=== PATIENT | male | born 1950 | race Caucasian/White ===

== ENCOUNTER 2019-05-25 07:17 | Inpatient (IN) | payer MEDICARE ==
--- NOTE | 2019-05-19 15:24 | HP ---
HISTORY AND PHYSICAL: DATE OF ADMISSION/SURGERY: 05/25/19 DATE OF OFFICE VISIT: 05/14/19 SURGEON: Maame Martínez MD * (DICTATED BY MAXX HUFF) PROCEDURE: Right total knee arthroplasty. CHIEF COMPLAINT: Right knee pain. HISTORY OF PRESENT ILLNESS: Mr. Dee is a 68-year-old gentleman with end- stage osteoarthritis of the right knee. He has failed conservative treatment and elected to proceed with a right total knee arthroplasty. PAST MEDICAL HISTORY: Chronic kidney disease, coronary artery disease, and history of DVT/PE. PAST SURGICAL HISTORY: Pacemaker placement, cardiac stents, hardware removal right knee, ORIF of the right tibia. CURRENT MEDICATIONS: 1. Folic acid 1 mg a day. 2. Allopurinol 100 mg 2 tabs daily. 3. Metoprolol 25 mg daily. 4. Aspirin 81 mg a day. 5. Vitamin D. 6. Fludrocortisone daily. 7. Fish oil. 8. Vitamin C. 9. Fluticasone nasal spray. ALLERGIES: LOVAZA, SIMVASTATIN, and ZETIA. FAMILY HISTORY: Coronary artery disease, diabetes and stroke. SOCIAL HISTORY: He is a 68-year-old gentleman. He lives with his . He does not smoke, use drugs or alcohol. REVIEW OF SYSTEMS: A complete 14-point review of systems was reviewed with the patient. It was positive for history of a DVT, PE and chronic kidney disease. He denies history of hepatitis, HIV, or anesthesia problems. PHYSICAL EXAMINATION GENERAL: He is well developed, well nourished, in no acute distress. VITAL SIGNS: He stands 68 inches tall, weighs 185 pounds. Blood pressure is 126/74, his heart rate is 76. HEENT: Normocephalic, atraumatic. NECK: Supple. No palpable lymph nodes. PULMONARY: The lungs are clear to auscultation bilaterally. CARDIO: Regular rate and rhythm. Strong S1, S2. ABDOMEN: Soft, nontender, nondistended. NEUROLOGICAL: He is alert and oriented x3. MUSCULOSKELETAL: Right lower extremity: The skin is intact. There are no open wounds or abrasions. There is a moderate effusion of the right knee joint. There is some tenderness along the medial and lateral joint line. Range of motion is 10 to 120 degrees of flexion. He walks with an antalgic type gait. He is able to dorsiflex and plantarflex. He has a 2+ dorsalis pedis pulse and intact sensation. ASSESSMENT AND PLAN: Mr. Dee is a 68-year-old gentleman with end-stage osteoarthritis of the right knee. He has failed conservative treatment and elected to proceed with a right total knee arthroplasty. The surgery is scheduled for 05/25/[address] Martínez. Dr. Martínez discussed the risks and benefits of the surgery at today's visit and all of his questions were answered. He will follow up with Dr. Martínez 2 weeks after the surgery. MAXX HUFF [id number]/[facility] #: [id number]
[~2019-05-25 07:17] MED LIST: Buffered Lidocaine 1% SYRIN* 1 ML/SYRINGE INTRADERM ONE; Famotidine IV* 10 MG/ML 2 ML (20 mg) IV ONE; Lactated Ringers 1000 ML Bag* 1,000 ML IV SCH
--- OUTSIDE RECORDS SUMMARY | 2019-05-25 07:20 | XMS REPORT | Continuity of Care Document ---
:1950 External Reference #:[id number] Author Name Blanquita Cisneros MD (transmitted by agent of provider Rissa Croft) Address [address] [place] [id number] Care Team Providers Name Role Phone Erick Petty MD - Family Medicine Care Team Information Poultry Vaccinator Problems Active Problems Provider Date Multiple joint pain Jason Fuentes M.D. Onset: 10/20/2012 Gouty arthropathy Jason Fuentes M.D. Onset: 10/20/2012 Uric acid urolithiasis Jason Fuentes M.D. Onset: 10/20/2012 Syncope and collapse Gatito Hdz M.D., [facility], Onset: 03/23/2013 [facility] Chronic ischemic heart disease Gatito Hdz M.D., [facility], Onset: 03/23/2013 [facility] Hyperlipidemia Gatito Hdz M.D., [facility], Onset: 03/23/2013 [facility] Complete atrioventricular block Gatito Hdz M.D., [facility], Onset: 11/30/2013 [facility] Atrial flutter Gatito Hdz M.D., [facility], Onset: 11/30/2013 [facility] Mixed hyperlipidemia Gatito Hdz M.D., [facility], Onset: 06/19/2015 [facility] Cardiac pacemaker in situ Gatito Hdz M.D., [facility], Onset: 07/03/2016 [facility] Essential hypertension Gatito Hdz M.D., [facility], Onset: 07/03/2016 [facility] Atherosclerotic heart disease of Gatito Hdz M.D., [facility], Onset: 06/16/2017 [place] coronary artery without angina [facility] pectoris Localized, secondary osteoarthritis Maame Martínez M.D. Onset: 12/10/2017 Inflammatory polyarthropathy Maame Martínez M.D. Onset: 12/10/2017 Difficulty breathing Maikol Menezes M.D., [facility], Onset: 06/15/2018 [facility] Atherosclerotic heart disease of Maikol Menezes M.D., [facility], Onset: 2018 [place] coronary artery with other [facility] forms of angina pectoris Thoracic aortic ectasia Maikol Menezes M.D., [facility], Onset: 07/07/2018 [facility] Encounter for removal of internal Catarina Perry MD Onset: 07/14/2018 fixation device Localized, primary osteoarthritis Maame Martínez M.D. Onset: 12/07/2018 Social History Type Date Description Comments Sex Unknown Tobacco Use Start: Unknown Never Smoked Cigarettes Smoking Status Reviewed: 05/19/19 Never Smoked Cigarettes ETOH Use Denies alcohol use Tobacco Use Start: Unknown Patient has never smoked Recreational Drug Use Denies Drug Use Exercise Type/Frequency Exercises regularly walking, when arthritis not bothering him Allergies, Adverse Reactions, Alerts Active Allergies Reaction Severity Comments Date Lovaza 10/03/2017 Simvastatin muscle aches 10/03/2017 Zetia muscle aches 10/03/2017 Inactive Allergies NKDA 10/20/2012 Medications Active Medications SIG Qnty Indications Ordering Date Provider Cosyntropin 250mcg 1units E27.3 [facility], 04/27/2019 0.25mg intramuscular once MD Solution Rec in office Folic Acid Take One Tablet By 30tabs Z79.899 Flex Russlel, 05/27/2017 1mg Tablets Mouth Every Day [employer] Allopurinol Take Two Tablets By 180tabs M10.00 Suziofitheo Russell, 03/20/2017 100mg Tablets Mouth Every Day [employer] Metoprolol Succinate 6 tablets once on 90tabs I48.92 Maikol Grossman 11/30/2013 ER Mon only Marion Menezes, 25mg Tablets ER 24HR [facility] Aspir-81 1 po qd Other Ordering 10/20/[address] Andres Vitamin D po qd 30caps Other Ordering 10/20/2012 1000Unit Provider Capsules Fludrocortisone 1 tab everyday 30tabs Unknown Acetate 0.1mg Tablets Fish Oil Burp-Less 2 by mouth daily Unknown 1000mg Capsules Vitamin C 1 by mouth every Unknown 500mg Tablets day Fluticasone Propionate 2 sprays each Unknown nostril daily as 50mcg/Act Suspension needed Medications Administered in Office Medication SIG Qnty Indications Ordering Provider Date Injection Cosyntropin 0.25MG Quinn Dominguez MD 04/27/2019 Injection Depomedrol 40MG Maame Martínez M.D. 01/29/2019 Injection Depomedrol 40MG Maame Martínez M.D. 12/07/2018 Injection Depomedrol 40MG Maame Martínez M.D. 10/26/2018 Injection Depomedrol 40MG Maame Martínez M.D. 08/03/2018 Injection Inj, Regadenoson, 0.1 MG Maikol Menezes M.D., 07/06/2018 Injection JAKUBC, FASNC Technetium TC 99M Maikol Menezes M.D., 07/06/2018 Tetrofosmin, Per Unit Dose FACC, FASNC Up To 40 Millicuries Injection Depomedrol 40MG Maame Martínez M.D. 05/22/2018 Injection Depomedrol 40MG Maame Martínez M.D. 03/16/2018 Injection Depomedrol 40MG Maame Martínez M.D. 12/10/2017 Injection Immunizations Description No Information Available Vital Signs Date Vital Result Comment 05/19/2019 11:36am Height 68.5 inches 5'8.50" Weight 185.00 lb Heart Rate 67 /min BP Systolic Sitting 118 mmHg right arm large cuff BP Diastolic Sitting 72 mmHg right arm large cuff O2 % BldC Oximetry 98 % room air BMI (Body Mass Index) 27.7 kg/m2 05/14/2019 1:03pm Height 68.5 inches 5'8.50" Weight 185.50 lb Heart Rate 76 /min BP Systolic 126 mmHg BP Diastolic 74 mmHg Respiratory Rate 16 /min Pain Level 1 BMI (Body Mass Index) 27.8 kg/m2 Results Test Acquired Date Facility Test Result H/L Range Note Inr/Protime 05/14/2019 [facility] Inr 1.00 Normal 0.82-1.09 1 [address] [place] [address] [phone] Laboratory test 05/14/2019 [facility] Partial 32.7 Normal 26.0 -38.[address] [place] [address] PTT [phone] Urinalysis 05/14/2019 [facility] Urine Color Yellow Profile [address] [place] [address] [phone] Urine Appearance Clear Urine Specific [place] 1.011 Normal 1.010-1.030 Urine pH 5.0 Normal 5-9 Urine Urobilinogen Negative Negative Urine Ketones Negative Negative Urine Protein Negative Negative Urine Leukocytes Negative Negative Urine Blood Negative Negative * * Abnormal Negative 2 Urine Nitrite Negative Negative Urine Bilirubin Negative Negative Urine Glucose Negative Negative CBC Auto 05/14/2019 [facility] White Blood 8.3 10^3/uL Normal 3.5-10.[address] [place] [address] [phone] Red Blood Count 4.08 10^6/uL Low 4.18-5.48 Hemoglobin 14.5 g/dL Normal 14.0-18.0 Hematocrit 41 % Low 42-52 Mean Corpuscular Volume 101 fL High 80-94 Mean Corpuscular Hemoglobin 36 pg High 27-31 Mean Corpuscular HGB Conc 35 g/dL Normal 31-36 Red Cell Distribution Width 14 % Normal 10-15 Platelet Count 125 10^3/uL Low 150-450 Mean Platelet Volume 8.8 fL Normal 7.4-10.4 Abs Neutrophils 5.8 10^3/uL Normal 1.5-7.7 Abs Lymphocytes 1.8 10^3/uL Normal 1.0-4.8 Abs Monocytes 0.6 10^3/uL Normal 0-0.8 Abs Eosinophils 0.1 10^3/uL Normal 0-0.6 Abs Basophils 0.1 10^3/uL Normal 0-0.2 Abs Nucleated RBC 0.0 10^3/uL Granulocyte % 69.2 % Lymphocyte % 21.7 % Monocyte % 6.9 % Eosinophil % 1.4 % Basophil % 0.8 % Nucleated Red Blood Cells % 0.0 Type & Screen 05/14/2019 [facility] Patient Blood Type A Negative [address] [place] [address] [phone] Antibody Screen NEGATIVE Comp Metabolic 05/14/2019 [facility] Sodium 142 mmol/L Normal 135-145 Panel [address] [place] [address] [phone] Potassium 4.3 mmol/L Normal 3.5-5.0 Chloride 109 mmol/L Normal 101-111 Co2 Carbon Dioxide 27 mmol/L Normal 22-32 Anion Gap 6 mmol/L Normal 2-11 Glucose 102 mg/dL High 70-100 Blood Urea Nitrogen 22 mg/dL Normal 6-24 Creatinine 1.46 mg/dL High 0.67-1.17 BUN/Creatinine Ratio 15.1 Normal 8-20 Calcium 9.2 mg/dL Normal 8.6-10.3 Total Protein 6.1 g/dL Low 6.4-8.9 Albumin 4.3 g/dL Normal 3.2-5.2 Globulin 1.8 g/dL Low 2-4 Albumin/Globulin Ratio 2.4 Normal 1-3 Total Bilirubin 1.00 mg/dL Normal 0.2-1.0 Alkaline Phosphatase 76 U/L Normal 34-104 Alt 39 U/L Normal 7-52 Ast 31 U/L Normal 13-39 Egfr Non- 48.3 >60 Egfr 58.5 >60 3 Urine Culture And 05/14/2019 [facility] Urine Culture SEE RESULT [address] [place] [address] [phone] Laboratory test 04/27/2019 [facility] Cortisol 23.73 g/dL 5 finding [address] [place] [address] [phone] Laboratory test 04/27/2019 [facility] Acth 32 pg/mL 6, 7 finding [address] [place] [address] [phone] Cortisol 9.39 g/dL 8 Dhea Sulfate 40 g/dL 12-227 9 Free T4 (Free Thyroxine) 0.79 ng/dL Normal 0.61-1.12 10 TSH (Thyroid Stim Horm) 3.20 mcIU/mL Normal 0.34-5.60 11 Prolactin 9.1 ng/mL Normal 1.0-20.0 12 Testosterone Total 336.07 ng/dL Normal 240-950 13 Sex Hormone Binding Globulin 40 nmol/L 10-57 14 Comp Metabolic 02/05/2019 [facility] Sodium 143 mmol/L Normal 135-145 Panel [address] [place] [address] [phone] Potassium 4.2 mmol/L Normal 3.5-5.0 Chloride 108 mmol/L Normal 101-111 Co2 Carbon Dioxide 29 mmol/L Normal 22-32 Anion Gap 6 mmol/L Normal 2-11 Glucose 81 mg/dL Normal 70-100 Blood Urea Nitrogen 24 mg/dL Normal 6-24 Creatinine 1.37 mg/dL High 0.67-1.17 BUN/Creatinine Ratio 17.5 Normal 8-20 Calcium 9.2 mg/dL Normal 8.6-10.3 Total Protein 6.2 g/dL Low 6.4-8.9 Albumin 4.3 g/dL Normal 3.2-5.2 Globulin 1.9 g/dL Low 2-4 Albumin/Globulin Ratio 2.3 Normal 1-3 Total Bilirubin 1.00 mg/dL Normal 0.2-1.0 Alkaline Phosphatase 81 U/L Normal 34-104 Alt 20 U/L Normal 7-52 Ast 19 U/L Normal 13-39 Egfr Non- 52.0 >60 Egfr 62.9 >60 15 Creatinine 02/05/2019 [facility] Creatinine, 1.36 High 0.51- 0.[address] Serum mg/dL [place], [place] [address] [phone] Urine Collection Time 24 hr Urine Total Volume 2450 mL Creatinine Clearance 68 mL/min Low 97-137 Total Protein 24HR 02/05/2019 [facility] Urine Collection Time 24 hr Urine [address] [place], [place] [address] [phone] Urine Total Volume 2450 mL Urine Total Protein/24HR 269 mg/24Hr High 0-165 Urine Protein Elctrophoresis 02/05/2019 [facility] Albumin 100 % (RDM) [address] [place] [address] [phone] Impression See Comment 16 Total Protein(Pep) Urine <4 mg/dL 17 Protein 02/05/2019 [facility] Total 6.4 g/dL 6.3 - Electrophoresis [address] Protein(Pep) 7.9 [place] [address] [phone] Albumin 3.7 g/dL 3.4-4.7 Alpha-1 Globulin 0.2 g/dL 0.1-0.3 Alpha-2 Globulin 0.8 g/dL 0.6-1.0 Beta Globulin 1.0 g/dL 0.7-1.2 Gamma Globulin 0.8 g/dL 0.6-1.6 Albumin/Globulin Ratio 1.39 Impression See Comment 18 [place]/Lambda Free 02/05/2019 [facility] [place] Free 2.17 mg/dL Abnormal 19 Light Chains Ser [address] [place] [address] [phone] Lambda Free Light Chain 1.68 mg/dL 20 [place]/Lambda Free Light Chain 1.29 21 Laboratory test 02/05/2019 [facility] Total Protein < 4 mg/dL finding [address] [place] [address] [phone] Creatinine Random Urine 59.65 mg/dL Urine Microalbumin 02/05/2019 [facility] Ur Microalbumin < 15.[address] (mg/L) mg/[place] [address] [phone] Urine Creatinine 59.65 mg/dL Urine Microalbumin/Creatinine TNP <31 22 Laboratory test 02/05/2019 [facility] Aldosterone <4.0 ng/dL <=21 [address] [place] [address] [phone] Renin <0.6 ng/mL/h 24 Cortisol 2.13 g/dL 25 TSH (Thyroid Stim Horm) 1.58 mcIU/mL Normal 0.34-5.60 Hemoglobin A1c (Glyco HGB) 5.6 % Normal 4.0-5.6 26 Laboratory test 02/05/2019 [facility] Erythrocyte Sed 0 mm/Hr Normal 0-19 [address] [place] [address] [phone] C Reactive Protein 1.47 mg/L Normal <8.01 28 CBC Auto 02/05/2019 [facility] White Blood 9.4 10^3/uL Normal 3.5-10.[address] [place] [address] [phone] Red Blood Count 4.43 10^6/uL Normal 4.18-5.48 Hemoglobin 15.5 g/dL Normal 14.0-18.0 Hematocrit 45 % Normal 42-52 Mean Corpuscular Volume 101 fL High 80-94 Mean Corpuscular Hemoglobin 35 pg High 27-31 Mean Corpuscular HGB Conc 35 g/dL Normal 31-36 Red Cell Distribution Width 16 % High 10-15 Platelet Count 134 10^3/uL Low 150-450 Mean Platelet Volume 8.5 fL Normal 7.4-10.4 Abs Neutrophils 6.9 10^3/uL Normal 1.5-7.7 Abs Lymphocytes 1.8 10^3/uL Normal 1.0-4.8 Abs Monocytes 0.7 10^3/uL Normal 0-0.8 Abs Eosinophils 0.0 10^3/uL Normal 0-0.6 Abs Basophils 0.0 10^3/uL Normal 0-0.2 Abs Nucleated RBC 0.0 10^3/uL Granulocyte % 72.9 % Lymphocyte % 18.8 % Monocyte % 7.3 % Eosinophil % 0.5 % Basophil % 0.5 % Nucleated Red Blood Cells % 0.0 Anca Panel For 02/05/2019 [facility] Myeloperoxidase AB < 0.2 U [address] [place] [address] [phone] Proteinase 3 AB < 0.2 U 30 Laboratory test 02/05/2019 [facility] Anti Nuclear 0.1 U 31 finding [address] [facility] [place] [address] [phone] 1 Standard intensity warfarin therapeutic range: 2.0-3.0 High intensity warfarin therapeutic range: 2.5-3.5 2 *Ascorbic acid is present which may interfere with detection of blood. 3 Because ethnic data is not always readily available, this report includes an eGFR for both -Americans and non- Americans. The National Kidney Disease Education Program (NKDEP) does not endorse the use of the MDRD equation for patients that are not between the ages of 18 and 70, are , have extremes of body size, muscle mass, or nutritional status, or are non- or non-. According to the National Kidney Foundation, irrespective of diagnosis, the stage of the disease is based on the level of kidney function: Stage Description GFR(mL/min/1.73 m(2)) 1 Kidney damage with normal or decreased GFR 90 2 Kidney damage with mild decrease in GFR 60-89 3 Moderate decrease in GFR 30-59 4 Severe decrease in GFR 15-29 5 Kidney failure <15 (or dialysis) 4 SEE RESULT BELOW Name: DAROBIE : [address]: Maame Martínez MD Acct: [id number] Unit: [id number] AGE: 68 Location: PAT Re05/14/19 SEX: M Status: REG REF SPEC: [id number] JUAN DAVID: 05/14/19-[address]: Maame Martínez MD REQ: [id number] RECD: 05/14/19 STATUS: COMP _ SOURCE: URINE SPDESC: ORDERED: Urine Culture QUERIES: Urine Source: Clean Catch Procedure Result Reported Site Urine Culture Final 05/15/19- 1448 ML No Growth (<1,000 CFU/mL) * ML - Main Lab . END OF REPORT DEPARTMENT OF PATHOLOGY, [address] [place] [address] Linwood Steinberg M.D. Director CLIA # [id number] 5 AM 8.7-22.4 PM <10 6 BASELINE 7 REFERENCE VALUE 7.2-63 (a.m. collection) Test Performed by: [place] [address] Pesticide Use Medical Coordinator: Pedro Luis Barraza M.D. Ph.D.; CLIA# [id number] 8 AM 8.7-22.4 PM <10 9 Test Performed by: [place] [address] Pesticide Use Medical Coordinator: Pedro Luis Barraza M.D. Ph.D.; CLIA# [id number] 10 BASELINE 11 BASELINE 12 BASELINE 13 BASELINE 14 Test Performed by: [place] [address] Pesticide Use Medical Coordinator: Pedro Luis Barraza M.D. Ph.D.; CLIA# [id number] 15 Because ethnic data is not always readily available, this report includes an eGFR for both -Americans and non- Americans. The National Kidney Disease Education Program (NKDEP) does not endorse the use of the MDRD equation for patients that are not between the ages of 18 and 70, are , have extremes of body size, muscle mass, or nutritional status, or are non- or non-. According to the National Kidney Foundation, irrespective of diagnosis, the stage of the disease is based on the level of kidney function: Stage Description GFR(mL/min/1.73 m(2)) 1 Kidney damage with normal or decreased GFR 90 2 Kidney damage with mild decrease in GFR 60-89 3 Moderate decrease in GFR 30-59 4 Severe decrease in GFR 15-29 5 Kidney failure <15 (or dialysis) 16 RESULT: Albumin is the only protein detected. 17 ADDITIONAL INFORMATION On 11/05/2016 the total protein assay method changed resulting in approximately a 15% increase in protein values. Test Performed by: [facility] [address] [place] [address] Pesticide Use Medical Coordinator: Pedro Luis Barraza M.D. Ph.D.; CLIA# [id number] Test Performed by: [facility] [place] [address] Pesticide Use Medical Coordinator: Pedro Luis Barraza M.D. Ph.D.; CLIA# [id number] 18 RESULT: No apparent monoclonal protein on serum electrophoresis. Test Performed by: [facility] [address] [place] [address] Pesticide Use Medical Coordinator: Pedro Luis Barraza M.D. Ph.D.; CLIA# [id number] 19 REFERENCE VALUE 0.3300-1.94 20 REFERENCE VALUE 0.5700-2.63 21 REFERENCE VALUE 0.2600-1.65 Test Performed by: [facility] [place] [address] Pesticide Use Medical Coordinator: Pedro Luis Barraza M.D. Ph.D.; CLIA# [id number] 22 Unable to calculate due to low microalbumin 23 ADDITIONAL INFORMATION Reference range for patients 11 years and older is based on upright A.M. collection from subjects without sodium restrictions. This test was developed and its performance characteristics determined by [facility] in a manner consistent with CLIA requirements. This test has not been cleared or approved by the U.S. Food and Drug Administration. Test Performed by: [facility] [place] [address] Pesticide Use Medical Coordinator: Pedro Luis Barraza M.D. Ph.D.; CLIA# [id number] 24 REFERENCE VALUE (Peripheral vein specimen) Na-deplete, upright: Mean: 5.9 Range: 2.9-10.8 Na-replete, upright: Mean: 1.0 Range: < or =0.6-3.0 ADDITIONAL INFORMATION Testing performed by Liquid Chromatography-Tandem Mass Spectrometry (LC-MS/MS). This test was developed and its performance characteristics determined by [facility] in a manner consistent with CLIA requirements. This test has not been cleared or approved by the U.S. Food and Drug Administration. Test Performed by: [facility] [place] [address] Pesticide Use Medical Coordinator: Pedro Luis Barraza M.D. Ph.D.; CLIA# [id number] 25 AM 8.7-22.4 PM <10 26 Therapeutic target for the treatment of diabetes mellitus patients is <7% HBA1C, and in selective patients <6.0%. Please refer to [place] [employer] Association diabetic care guidelines for further information. 27 ORDERED:11/11/18 :05/14/19 STANDING ORDER 28 ORDERED:11/11/18 :05/14/19 STANDING ORDER 29 REFERENCE VALUE <0.4 (Negative) 30 REFERENCE VALUE <0.4 (Negative) Test Performed by: [place] [address] Pesticide Use Medical Coordinator: Pedro Luis Barraza M.D. Ph.D.; CLIA# [id number] 31 REFERENCE VALUE <=1.0 (Negative) Test Performed by: [place] [address] Pesticide Use Medical Coordinator: Pedro Luis Barraza M.D. Ph.D.; CLIA# [id number] Procedures Date Code Description Status 04/27/2019 06529 Admin Of Inj Completed 04/26/2019 32449 EKG Tracing & Interpretation Completed 04/20/2019 10295 ECHO Transthoracic, Real-Time 2D With Doppler And Color Completed Flow 02/01/2019 90911 Pace Maker Eval W/Iterative Adjment Dual Lead Completed 02/01/2019 77250 Pace Maker Eval W/Iterative Adjment Dual Lead Completed 01/29/2019 60398 Inject/Drain Joint/Bursa Major W/O US Completed 12/07/2018 20782 Inject/Drain Joint/Bursa Major W/O US Completed Medical Devices Description No Information Available Encounters Type Date Location Provider Dx Diagnosis Office Visit 04/26/2019 [facility] Maikol Grossman Z01.810 Encounter for 1:30p Of Benitez Menezes M.D., preprocedural FACC, [facility] cardiovascular examination M17.11 Unilateral primary osteoarthritis, right knee I77.810 Thoracic aortic ectasia I25.10 Athscl heart disease of [place] coronary artery w/o ang pctrs Office Visit 03/22/2019 [facility] Zsofia M06.4 Inflammatory 3:30p [facility] PAIGE [place] polyarthropathy Ccmob M1A.9xx0 Chronic gout, unspecified, without tophus (tophi) N18.3 Chronic kidney disease, stage 3 (moderate) D69.6 Thrombocytopenia, unspecified 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, right knee Z79.899 Other intermodal customer service (current) drug therapy Office Visit 03/01/2019 1:45p [facility] Maamejanki Martínez, M25.561 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, right knee Office Visit 02/10/2019 [facility] Radha E27.40 Unspecified 1:00p MD Melvin adrenocortical insufficiency N18.3 Chronic kidney disease, stage 3 (moderate) I95.89 Other hypotension Office Visit 01/29/2019 [facility] M17.31 Unilateral 10:00a Orthopedics at [place] Martínez post-traumatic [place] osteoarthritis, right knee M25.561 Pain in right knee M72.2 Plantar fascial fibromatosis Office Visit 12/07/2018 Ricardo Isabel M06.4 Inflammatory 2:30p Orthopedics at [place] Martínez polyarthropathy [place] M25.562 Pain in left knee M25.462 Effusion, left knee M17.12 Unilateral primary osteoarthritis, left 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 osteoarthritis, right knee 05/14/2019 M25.561 Pain in right knee Maame Martínez M.D. 04/27/2019 R94.7 Abnormal results of other endocrine Quinn Dominguez MD function studies 04/27/2019 I95.1 Orthostatic hypotension Quinn Dominguez MD 04/27/2019 I25.10 Atherosclerotic heart disease of Quinn Dominguez MD [place] coronary artery without angina pectoris 04/27/2019 R53.83 Other fatigue Quinn Dominguez MD 04/26/2019 Z01.810 Encounter for preprocedural Maikol Menezes M.D., [facility], cardiovascular examination [facility] 04/26/2019 M17.11 Unilateral primary osteoarthritis, Maikol Menezes M.D. , [facility], right knee FASME 04/26/2019 I77.810 Thoracic aortic ectasia Maikol Menezes M.D., [facility], [facility] 04/26/2019 I25.10 Atherosclerotic heart disease of Maikol Menezes M.D., [facility], [place] coronary artery without [facility] angina pectoris 04/20/2019 I77.810 Thoracic aortic ectasia Maikol Menezes M.D., [facility], [facility] 04/20/2019 I77.810 Thoracic aortic ectasia Traveling ECHO 2 03/22/2019 M06.4 Inflammatory polyarthropathy Zsofia Drew, [employer] 03/22/2019 M1A.9xx0 Chronic gout, unspecified, without Zsofia Drew, [employer] tophus (tophi) 03/22/2019 N18.3 Chronic kidney disease, stage 3 Zsofia Drew, [employer] (moderate) 03/22/2019 D69.6 Thrombocytopenia, unspecified Zsofia Drew, [employer] 03/22/2019 M17.31 Unilateral post-traumatic Zsofia Drew, [employer] osteoarthritis, right knee 03/22/2019 Z79.899 Other intermodal customer service (current) drug Zsofia Drew, [employer] therapy 03/01/2019 M25.561 Pain in right knee Maame Martínez M.D. 03/01/2019 M17.31 Unilateral post-traumatic Maame Martínez M.D. osteoarthritis, right knee 02/10/2019 E27.40 Unspecified adrenocortical Radhano Charles MD insufficiency 02/10/2019 N18.3 Chronic kidney disease, stage 3 Radha Charles MD (moderate) 02/10/2019 I95.89 Other hypotension Radha Charles MD 02/01/2019 Z95.0 Presence of cardiac pacemaker Maikol Menezes M.D., [facility], [facility] 02/01/2019 Z95.0 Presence of cardiac pacemaker Ica Pacer Schedule 02/01/2019 I44.2 Atrioventricular block, complete Ica Pacer Schedule 01/29/2019 M17.31 Unilateral post-traumatic Maame Martínez M.D. osteoarthritis, right knee 01/29/2019 M25.561 Pain in right knee Maame Martínez M.D. 01/29/2019 M72.2 Plantar fascial fibromatosis Maame Martínez M.D. 12/07/2018 M06.4 Inflammatory polyarthropathy Maame Martínez M.D. 12/07/2018 M25.562 Pain in left knee Maame Martínez M.D. 12/07/2018 M25.462 Effusion, left knee Maame Martínez M.D. 12/07/2018 M17.12 Unilateral primary osteoarthritis, Maame Martínez M.D. left knee 12/07/2018 M17.31 Unilateral post-traumatic Maame Martínez M.D. osteoarthritis, right knee 12/07/2018 M25.561 Pain in right knee Maame Martínez M.D. 12/07/2018 M25.461 Effusion, right knee Maame Martínez M.D. Plan of Treatment Future Appointment(s):11/17/2019 3:40 pm - Blanquita Cisneros MD at [facility] Cbbjwzvobe81/27/2020 3:15 pm - Maame Martínez M.D. at [facility] at Mcuyof1105/25/2019 8:30 am - Heriberto Rowell PA-C at [facility] at [id number] 8:30 am - MAXX Arredondo at [facility] at [email or web address] 2:40 pm - Quinn Dominguez MD at [facility]06/28 1:30 pm - PAIGE Amaya at [facility]07/05 10:00 am - Blanquita Cisneros MD at [facility] Ulrcvrcuzl87/14/2020 8:30 am - Maame Martínez M.D. at [facility] at Oyipkq5105/19/2019 - Blanquita Cisneros MDN18.3 Chronic kidney disease, stage 3 (moderate)Comments:Patient is cleared from Nephrology point for Rt Knee replacement 05/25/2019, pending cardiology and anesthesiology clearance. Keep SBP 110-140.Follow up:f/u in 6 months with labsI10 Essential (primary) anerpzhgmhoxV32.9 Hypertensive chronic kidney disease with stage 1 through stage 4 chronic kidney disease, or unspecified chronic kidney disease Functional Status Description No Information Available Mental Status Description No Information Available Referrals Refer to Reason for Referral Status Appt Date Quinn Dominguez MD low aldosterone level and cortisol level Patient Notified 04/27/2019 on fludricortisone for more than 3 years h/o steroid use a few months ago for arthiritis eval for adrenal insufficiency [address] [place] [address] [phone]
--- OUTSIDE RECORDS SUMMARY | 2019-05-25 07:20 | XMS REPORT | Continuity of Care Document ---
:1950 External Reference #:[id number] Author Name Maame Martínez M.D. 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 Onset: 10/20/2012 Gouty arthropathy Jason Fuentes M.D. Onset: 10/20/2012 Uric acid urolithiasis Jason Fuentes M.D. Onset: 10/20/2012 Syncope and collapse Gatito Hdz M.D., [facility], Onset: 03/23/2013 [facility] Chronic ischemic heart disease Gatito Hdz M.D., [facility], Onset: 03/23/2013 [facility] Hyperlipidemia Gatito Hdz M.D., [facility], Onset: 03/23/2013 [facility] Complete atrioventricular block Gatito Hdz M.D., [facility], Onset: 11/30/2013 [facility] Atrial flutter Gatito Hdz M.D., [facility], Onset: 11/30/2013 [facility] Mixed hyperlipidemia Gatito Hdz M.D., [facility], Onset: 06/19/2015 [facility] Cardiac pacemaker in situ Gatito Hdz M.D., [facility], Onset: 07/03/2016 [facility] Essential hypertension Gatito Hdz M.D., [facility], Onset: 07/03/2016 [facility] Atherosclerotic heart disease of Gatito Hdz M.D., [facility], Onset: 06/16/2017 elem coronary artery without angina [facility] pectoris Localized, secondary osteoarthritis Maame Martínez M.D. Onset: 12/10/2017 Inflammatory polyarthropathy Maame Martínez M.D. Onset: 12/10/2017 Difficulty breathing Maikol Menezes M.D., [facility], Onset: 06/15/2018 [facility] Atherosclerotic heart disease of Maikol Menezes M.D., [facility], Onset: 2018 elem coronary artery with other [facility] forms of angina pectoris Thoracic aortic ectasia Maikol Menezes M.D., [facility], Onset: 07/07/2018 [facility] Encounter for removal of internal Catarina Perry MD Onset: 07/14/2018 fixation device Localized, primary osteoarthritis Maame Martínez M.D. 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 Allopurinol Take Two Tablets By 180tabs M10.00 Suziofitheo Russell, 03/20/2017 100mg Tablets Mouth Every Day TRANSIT DEPARTMENT CLERK Metoprolol Succinate 6 tablets once on 90tabs I48.92 Maikol Grossman 11/30/2013 ER Mondays only Marion Menezes, 25mg Tablets ER 24HR [facility], [facility] Aspir-81 1 po qd Other Ordering 10/20/2012 [...] Available Vital Signs Date Vital Result Comment 05/14/2019 1:03pm Height 68.5 inches 5'8.50" Weight 185.50 lb Heart Rate 76 /min BP Systolic 126 mmHg BP Diastolic 74 mmHg Respiratory Rate 16 /min Pain Level 1 BMI (Body Mass Index) 27.8 kg/m2 04/27/2019 7:46am Height 68 inches 5'8" Weight 184.00 lb w/ shoes Heart Rate 80 /min BP Systolic Sitting 118 mmHg BP Diastolic Sitting 72 mmHg BMI (Body Mass Index) 28.0 kg/m2 Results Test Acquired Date Facility Test Result H/L Range Note Laboratory test 04/27/2019 [facility] Cortisol 23.73 g/dL 1 finding [address] [place] [address] [phone] Laboratory test 04/27/2019 [facility] Acth 32 pg/mL 2, [address] [place] [address] [phone] Cortisol 9.39 g/dL 4 Dhea Sulfate 40 g/dL 12-227 5 Free T4 (Free Thyroxine) 0.79 ng/dL Normal 0.61-1.12 6 TSH (Thyroid Stim Horm) 3.20 mcIU/mL Normal 0.34-5.60 7 Prolactin 9.1 ng/mL Normal 1.0-20.0 8 Testosterone Total 336.07 ng/dL Normal 240-950 9 Sex Hormone Binding Globulin 40 nmol/L 10-57 10 CBC Auto 02/05/2019 [facility] White Blood 9.4 10^3/uL Normal 3.5-10.[address] [place] [address] [phone] Red Blood Count 4.43 10^6/uL Normal 4.18-5.48 [...] % Nucleated Red Blood Cells % 0.0 Comp Metabolic 02/05/2019 [facility] Sodium 143 mmol/L Normal 135-[address] [place] [address] [phone] Potassium 4.2 mmol/L Normal 3.5-5.0 Chloride 108 [...] Egfr Non- 52.0 >60 Egfr 62.9 >60 11 Creatinine 02/05/2019 [facility] Creatinine, 1.36 High 0.51- 0.[address] Serum mg/[place] [address] [phone] Urine Collection Time 24 hr Urine Total Volume 2450 mL Creatinine Clearance 68 mL/min Low 97-137 Total Protein 24HR 02/05/2019 [facility] Urine Collection Time 24 hr Urine [address] [place] [address] [phone] Urine Total Volume 2450 mL Urine Total Protein/24HR 269 mg/24Hr High 0-165 Urine Protein Elctrophoresis 02/05/2019 [facility] Albumin 100 % (RDM) [address] [place] [address] [phone] Impression See Comment 12 Total Protein(Pep) Urine <4 mg/dL 13 Protein 02/05/2019 [facility] Total 6.4 g/dL 6.3 - Electrophoresis [address] Protein(Pep) 7.9 [place] [address] [phone] Albumin 3.7 g/dL 3.4-4.7 Alpha-1 Globulin 0.2 g/dL 0.1-0.3 Alpha-2 Globulin 0.8 g/dL 0.6-1.0 Beta Globulin 1.0 g/dL 0.7-1.2 Gamma Globulin 0.8 g/dL 0.6-1.6 Albumin/Globulin Ratio 1.39 Impression See Comment 14 [place]/Lambda Free 02/05/2019 [facility] [place] Free 2.17 mg/dL Abnormal [address] [place] [address] [phone] Lambda Free Light Chain 1.68 mg/dL 16 [place]/Lambda Free Light Chain 1.29 17 Laboratory test 02/05/2019 [facility] Total Protein < 4 mg/dL finding [place] [address] [phone] Creatinine Random Urine 59.65 mg/dL Urine Microalbumin 02/05/2019 [facility] Ur Microalbumin < 15[address] (mg/L) mg/[place] [address] [phone] Urine Creatinine 59.65 mg/dL Urine Microalbumin/Creatinine TNP <31 18 Laboratory test 02/05/2019 [facility] Aldosterone <4.0 ng/dL <=[address] [place] [address] [phone] Renin <0.6 ng/mL/h 20 Cortisol 2.13 g/dL 21 TSH (Thyroid Stim Horm) 1.58 mcIU/mL Normal 0.34-5.60 Hemoglobin A1c (Glyco HGB) 5.6 % Normal 4.0-5.6 22 Laboratory test 02/05/2019 [facility] Erythrocyte Sed 0 mm/Hr Normal 0-[address] [place] [address] [phone] C Reactive Protein 1.47 mg/L Normal <8.01 24 Anca Panel For 02/05/2019 [facility] Myeloperoxidase AB < 0.[address] [place] [address] [phone] Proteinase 3 AB < 0.2 U 26 Laboratory test 02/05/2019 [facility] Anti Nuclear 0.[address] [place] [address] [phone] 1 AM 8.7-22.4 PM <10 2 BASELINE 3 REFERENCE VALUE 7.2-63 (a.m. collection) Test Performed by: [place] [address] Manager User Experience: Pedro Luis Barraza M.D. Ph.D.; CLIA# [id number] 4 AM 8.7-22.4 PM <10 5 Test Performed by: [place] [address] Manager User Experience: Pedro Luis Barraza M.D. Ph.D.; CLIA# [id number] 6 BASELINE 7 BASELINE 8 BASELINE 9 BASELINE 10 Test Performed by: [place] [address] Manager User Experience: Pedro Luis Barraza M.D. Ph.D.; CLIA# [id number] 11 Because ethnic data is not always readily [...] 15-29 5 Kidney failure <15 (or dialysis) 12 RESULT: Albumin is the only protein detected. 13 ADDITIONAL INFORMATION On 11/05/2016 the total protein assay method changed resulting in approximately a 15% increase in protein values. Test Performed by: [place] [address] Manager User Experience: Pedro Luis Barraza M.D. Ph.D.; CLIA# [id number] Test Performed by: [address] [address] Manager User Experience: Pedro Luis Barraza M.D. Ph.D.; CLIA# [id number] 14 RESULT: No apparent monoclonal protein on serum electrophoresis. Test Performed by: [facility] [place] [address] Manager User Experience: Pedro Luis Barraza M.D. Ph.D.; CLIA# [id number] 15 REFERENCE VALUE 0.3300-1.94 16 REFERENCE VALUE 0.5700-2.63 17 REFERENCE VALUE 0.2600-1.65 Test Performed by: [facility] [place] [address] Manager User Experience: Pedro Luis Barraza M.D. Ph.D.; CLIA# [id number] 18 Unable to calculate due to low microalbumin 19 ADDITIONAL INFORMATION Reference range for patients 11 years and older is based on upright A.M. collection from subjects without sodium restrictions. This test was developed and its performance characteristics determined by [facility] in a manner consistent with CLIA requirements. This test has not been cleared or approved by the U.S. Food and Drug Administration. Test Performed by: [facility] [place] [address] Manager User Experience: Pedro Luis Barraza M.D. Ph.D.; CLIA# [id number] 20 REFERENCE VALUE (Peripheral vein specimen) Na-deplete, upright: Mean: 5.9 Range: 2.9-10.8 Na-replete, upright: Mean: 1.0 Range: < or =0.6-3.0 ADDITIONAL INFORMATION Testing performed by Liquid Chromatography-Tandem Mass Spectrometry (LC-MS/MS). This test was developed and its performance characteristics determined by [facility] in a manner consistent with CLIA requirements. This test has not been cleared or approved by the U.S. Food and Drug Administration. Test Performed by: [place] [address] Manager User Experience: Pedro Luis Barraza M.D. Ph.D.; CLIA# [id number] 21 AM 8.7-22.4 PM <10 22 Therapeutic target for the treatment of diabetes mellitus patients is <7% HBA1C, and in selective patients <6.0%. Please refer to [place] [employer] diabetic care guidelines for further information. 23 ORDERED:11/11/18 :05/14/19 STANDING ORDER 24 ORDERED:11/11/18 :05/14/19 STANDING ORDER 25 REFERENCE VALUE <0.4 (Negative) 26 REFERENCE VALUE <0.4 (Negative) Test Performed by: [place] [address] Manager User Experience: Pedro Luis Barraza M.D. Ph.D.; CLIA# [id number] 27 REFERENCE VALUE <=1.0 (Negative) Test Performed by: [facility] [address] [place] [address] Manager User Experience: Pedro Luis Barraza M.D. Ph.D.; CLIA# [id number] Procedures Date Code Description Status 04/27/2019 38403 Admin Of Inj Completed 04/26/2019 65573 EKG Tracing & Interpretation Completed 04/20/2019 79588 ECHO Transthoracic, Real-Time 2D With Doppler And Color Completed Flow 02/01/2019 95691 Pace Maker Eval W/Iterative Adjment Dual Lead Completed 02/01/2019 12036 Pace Maker Eval W/Iterative Adjment Dual Lead Completed 01/29/2019 93799 Inject/Drain Joint/Bursa Major W/O US Completed 12/07/2018 30210 Inject/Drain Joint/Bursa Major W/O US Completed Medical Devices Description No Information Available Encounters Type Date Location Provider Dx Diagnosis Office Visit 04/26/2019 [facility] Maikol Grossman Z01.810 Encounter for 1:30p Of Benitez Menezes M.D., preprocedural FACC, FASNC cardiovascular examination M17.11 Unilateral primary osteoarthritis, right knee I77.810 Thoracic aortic ectasia I25.10 Athscl heart disease of elem coronary artery w/o ang pctrs Office Visit 03/22/2019 Rheumatology Zsofia M06.4 Inflammatory 3:30p Services Of PAIGE Alicea polyarthropathy Ccmob M1A.9xx0 Chronic gout, unspecified, without tophus (tophi) N18.3 Chronic kidney disease, stage 3 (moderate) D69.6 Thrombocytopenia, unspecified 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, right knee Z79.899 Other custodial (current) drug therapy Office Visit 03/01/2019 1:45p [facility] Maame Martínez, M25.561 Pain in right at Mae Schultz 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, right knee Office Visit 02/10/2019 [facility] Nephrology Radha E27.40 Unspecified 1:00p MD Melvin adrenocortical insufficiency N18.3 Chronic kidney disease, stage 3 (moderate) I95.89 Other hypotension Office Visit 01/29/2019 [facility] M17.31 Unilateral 10:00a Orthopedics at [place] Martínez post-traumatic [place] osteoarthritis, right knee M25.561 Pain in right knee M72.2 Plantar fascial fibromatosis Office Visit 12/07/2018 Ricardo Isabel M06.4 Inflammatory 2:30p Orthopedics at Marion Martínez polyarthropathy [place] M25.562 Pain in left knee M25.462 Effusion, left knee M17.12 Unilateral primary osteoarthritis, left 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 osteoarthritis, right knee 05/14/2019 M25.561 Pain in right knee Maame Martínez M.D. 04/27/2019 R94.7 Abnormal results of other endocrine Quinn Dominguez MD function studies 04/27/2019 I95.1 Orthostatic hypotension Quinn Dominguez MD 04/27/2019 I25.10 Atherosclerotic heart disease of Quinn Dominguez MD elem coronary artery without angina pectoris 04/27/2019 R53.83 Other fatigue Quinn Dominguez MD 04/26/2019 Z01.810 Encounter for preprocedural Maikol Menezes M.D., [facility], cardiovascular examination [facility] 04/26/2019 M17.11 Unilateral primary osteoarthritis, Maikol Menezes M.D. , [facility], right knee FASLA 04/26/2019 I77.810 Thoracic aortic ectasia Maikol Menezes M.D., [facility], [facility] 04/26/2019 I25.10 Atherosclerotic heart disease of Maikol Menezes M.D., [facility], elem coronary artery without [facility] angina pectoris 04/20/2019 I77.810 Thoracic aortic ectasia Maikol Menezes M.D., [facility], [facility] 04/20/2019 I77.810 Thoracic aortic ectasia Traveling ECHO 2 03/22/2019 M06.4 Inflammatory polyarthropathy Zsofia Drew, TRANSIT DEPARTMENT CLERK 03/22/2019 M1A.9xx0 Chronic gout, unspecified, without Zsofia Drew, TRANSIT DEPARTMENT CLERK tophus (tophi) 03/22/2019 N18.3 Chronic kidney disease, stage 3 Zsofia Drew, TRANSIT DEPARTMENT CLERK (moderate) 03/22/2019 D69.6 Thrombocytopenia, unspecified Zsofia Drew, TRANSIT DEPARTMENT CLERK 03/22/2019 M17.31 Unilateral post-traumatic Zsofia Drew, TRANSIT DEPARTMENT CLERK osteoarthritis, right knee 03/22/2019 Z79.899 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 03/01/2019 M17.31 Unilateral post-traumatic Maame Martínez M.D. osteoarthritis, right knee 02/10/2019 E27.40 Unspecified adrenocortical Radha Charles MD insufficiency 02/10/2019 N18.3 Chronic kidney disease, stage 3 Radha Charles MD (moderate) 02/10/2019 I95.89 Other hypotension Radha Charles MD 02/01/2019 Z95.0 Presence of cardiac pacemaker Maikol Menezes M.D., [facility], [facility] 02/01/2019 Z95.0 Presence of cardiac pacemaker [...] M25.461 Effusion, right knee Maame Martínez M.D. 11/16/2018 M06.4 Inflammatory polyarthropathy Suziofia Drew, TRANSIT DEPARTMENT CLERK 11/16/2018 M1A.9xx0 Chronic gout, unspecified, without Zsofia Drew, TRANSIT DEPARTMENT CLERK tophus (tophi) 11/16/2018 N18.3 Chronic kidney disease, stage 3 Zsofia Drew, TRANSIT DEPARTMENT CLERK (moderate) 11/16/2018 M17.31 Unilateral post-traumatic Zsofia Drew, TRANSIT DEPARTMENT CLERK osteoarthritis, right knee 11/16/2018 Z79.899 Other custodial (current) drug Zsofia Drew, TRANSIT DEPARTMENT CLERK therapy Plan of Treatment Future Appointment(s):06/07/2019 3:15 pm - Maame Martínez M.D. at [facility] at Mzdbfr0505/25/2019 8:30 am - Heriberto Rowell PA-C at [facility] at Facaxa8405/25/2019 8:30 am - MAXX Arredondo at [facility] at Ntnfdk4807/27/2019 2:40 pm - Quinn Dominguez MD at [facility]06/28/2019 1:30 pm - PAIGE Amaya at [facility]07/05/2019 10:00 am - Blanquita Cisneros MD at [facility] Ilxrorxovp90/14/2020 8:30 am - Maame Martínez M.D. at [facility] at Xeamwh9305/14/2019 - Maame Martínez M.D.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, right kneeFollow up:Follow up: 2 weeks after mvmqbjlB11.561 Pain in right knee Functional Status Description No Information Available Mental Status Description No Information Available Referrals Refer to Dr Reason for Referral Status Appt Date Quinn Dominguez MD low aldosterone level and cortisol level Patient Notified 04/27/2019 on fludricortisone for more than 3 years h/o steroid use a few months ago for arthiritis eval for adrenal insufficiency [address] [place] [address] [phone]
--- OUTSIDE RECORDS SUMMARY | 2019-05-25 07:21 | XMS REPORT | Continuity of Care Document ---
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 Onset: 10/20/2012 Gouty arthropathy Jason Fuentes M.D. Onset: 10/20/2012 Uric acid urolithiasis Jason Fuentes M.D. Onset: 10/20/2012 Syncope and collapse Gatito Hdz M.D., [facility], Onset: 03/23/2013 [facility] Chronic ischemic heart disease Gatito Hdz M.D., [facility], Onset: 03/23/2013 [facility] Hyperlipidemia Gatito Hdz M.D., [facility], Onset: 03/23/2013 [facility] Complete atrioventricular block Gatito Hdz M.D., [facility], Onset: 11/30/2013 [facility] Atrial flutter Gatito Hdz M.D., [facility], Onset: 11/30/2013 [facility] Mixed hyperlipidemia Gatito Hdz M.D., [facility], Onset: 06/19/2015 [facility] Cardiac pacemaker in situ Gatito Hdz M.D., [facility], Onset: 07/03/2016 [facility] Essential hypertension Gatito Hdz M.D., [facility], Onset: 07/03/2016 [facility] Atherosclerotic heart disease of Gatito Hdz M.D., [facility], Onset: 06/16/2017 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 Onset: 12/10/2017 Inflammatory polyarthropathy Maame Martínez M.D. Onset: 12/10/2017 Difficulty breathing Maikol Menezes M.D., [facility], Onset: 06/15/2018 [facility] Atherosclerotic heart disease of Maikol Menezes M.D., [facility], Onset: 2018 tetlin coronary artery with other [facility] forms of angina pectoris Thoracic aortic ectasia Maikol Menezes M.D., [facility], Onset: 07/07/2018 [facility] Encounter for removal of internal Catarina Perry MD Onset: 07/14/2018 fixation device Localized, primary osteoarthritis Maame Martínez M.D. Onset: 12/07/2018 Social History Type Date Description Comments Sex Unknown Tobacco Use Start: Unknown Never Smoked Cigarettes Smoking Status Reviewed: 04/27/19 Never Smoked Cigarettes ETOH Use Denies alcohol [...] Ordering Date Provider Cosyntropin 250mcg 1units E27.3 Ball Coch, 04/27/2019 0.25mg intramuscular once MD Akash Rec in office Folic Acid Take One Tablet By 30tabs Z79.899 Flex Russell, 05/27/2017 1mg Tablets Mouth Every Day [employer] Allopurinol Take Two Tablets By 180tabs M10.00 Flex Russell, 03/20/2017 100mg Tablets Mouth Every Day [employer] Metoprolol Succinate 6 tablets once on 90tabs I48.92 Maikol Grossman 11/30/2013 ER Mondays only [place] Menezes, 25mg Tablets ER 24HR [facility] Aspir-81 1 po qd Other Ordering 10/20/[address] Provider Vitamin D po qd 30caps Other Ordering 10/20/2012 1000Unit Provider Capsules Fludrocortisone 1 tab everyday 30tabs Unknown Acetate 0.1mg Tablets Fish Oil Burp-Less 2 by mouth daily Unknown 1000mg Capsules Vitamin C 1 by mouth every Unknown 500mg Tablets day Medications Administered in Office Medication SIG Qnty Indications Ordering Provider Date Injection Cosyntropin 0.25MG Quinn Dominguez MD 04/27/2019 Injection Depomedrol 40MG Maame Martínez M.D. 01/29/2019 Injection Depomedrol 40MG Maame Martínez M.D. 12/07/2018 Injection Depomedrol 40MG Maame Martínez M.D. 10/26/2018 Injection Depomedrol 40MG Maame Martínez M.D. 08/03/2018 Injection Inj, Regadenoson, 0.1 MG Maikol Menezes M.D., 07/06/2018 Injection [place] Technetium TC 99M Maikol Menezes M.D., 07/06/2018 Tetrofosmin, Per Unit Dose [place] Up To 40 Millicuries Injection Agomedrol 40MG Maame Martínez M.D. 05/22/2018 Injection Depomedrol 40MG Maame Martínez M.D. 03/16/2018 Injection Diandrarol 40MG Maame Martínez M.D. 12/10/2017 Injection Immunizations Description No Information Available Vital Signs Date Vital Result Comment 04/27/2019 7:46am Height 68 inches 5'8" Weight 184.00 lb w/ shoes Heart Rate 80 /min BP Systolic Sitting 118 mmHg BP Diastolic Sitting 72 mmHg BMI (Body Mass Index) 28.0 kg/m2 04/26/2019 12:59pm Height 68 inches 5'8" Weight 186.00 lb with boots Heart Rate 64 /min BP Systolic Sitting 122 mmHg Rue reg cuff BP Diastolic Sitting 86 mmHg Rue reg cuff BP Systolic Standing 108 mmHg Rue reg cuff BP Diastolic Standing 80 mmHg Rue reg cuff Respiratory Rate 16 /min BMI (Body Mass Index) 28.3 kg/m2 Ejection Fraction 55-60% ECHO 04/20/2019 Results Test Acquired Date Facility Test Result H/L Range Note Laboratory test 02/05/2019 [facility] Erythrocyte Sed 0 mm/Hr Normal 0-19 [address] [place], [place] [id number] [phone] C Reactive Protein 1.47 mg/L Normal <8.01 2 Laboratory test 02/05/2019 [facility] Aldosterone <4.0 ng/dL <=21 [address] [place] [address] [phone] Renin <0.6 ng/mL/h 4 Cortisol 2.13 g/dL 5 TSH (Thyroid Stim Horm) 1.58 mcIU/mL Normal 0.34-5.60 Hemoglobin A1c (Glyco HGB) 5.6 % Normal 4.0-5.6 6 Urine Microalbumin 02/05/2019 [facility] Ur Microalbumin < 15.[address] (mg/L) mg/[place] [address] [phone] Urine Creatinine 59.65 mg/dL Urine Microalbumin/Creatinine TNP <31 7 Laboratory test 02/05/2019 [facility] Total Protein < 4 mg/dL finding [address] [place] [address] [phone] Creatinine Random Urine 59.65 mg/dL [place]/Lambda Free 02/05/2019 [facility] [place] Free 2.17 mg/dL Abnormal 8 Light Chains Ser [address] [place] [address] [phone] Lambda Free Light Chain 1.68 mg/dL 9 [place]/Lambda Free Light Chain 1.29 10 Protein 02/05/2019 [facility] Total 6.4 g/dL 6.3 - Electrophoresis [address] Protein(Pep) 7.9 [place] [address] [phone] Albumin 3.7 g/dL 3.4-4.7 Alpha-1 Globulin 0.2 g/dL 0.1-0.3 Alpha-2 Globulin 0.8 g/dL 0.6-1.0 Beta Globulin 1.0 g/dL 0.7-1.2 Gamma Globulin 0.8 g/dL 0.6-1.6 Albumin/Globulin Ratio 1.39 Impression See Comment 11 Urine Protein Elctrophoresis 02/05/2019 [facility] Albumin 100 % (RDM) [address] [place] [address] [phone] Impression See Comment 12 Total Protein(Pep) Urine <4 mg/dL 13 Total Protein 24HR 02/05/2019 [facility] Urine Collection Time 24 hr Urine [address] [place] [address] [phone] Urine Total Volume 2450 mL Urine Total Protein/24HR 269 mg/24Hr High 0-165 Creatinine 02/05/2019 [facility] Creatinine, 1.36 High 0.51- 0.[address] Serum mg/[place] [address] [phone] Urine Collection Time 24 hr Urine Total Volume 2450 mL Creatinine Clearance 68 mL/min Low 97-137 Comp Metabolic 02/05/2019 [facility] Sodium 143 mmol/L Normal 135-[address] [place] [address] [phone] Potassium 4.2 mmol/L Normal 3.5-5.0 Chloride 108 [...] Egfr Non- 52.0 >60 Egfr 62.9 >60 14 CBC Auto 02/05/2019 [facility] White Blood 9.4 10^3/uL Normal 3.5-10.[address] [place] [address] [phone] Red Blood Count 4.43 10^6/uL Normal 4.18-5.48 [...] Cells % 0.0 Anca Panel For 02/05/2019 [facility] Myeloperoxidase AB < 0.2 U [address] [place] [address] [phone] Proteinase 3 AB < 0.2 U 16 Laboratory test 02/05/2019 [facility] Anti Nuclear 0.1 U [address] [place] [address] [phone] CBC Auto Diff 11/11/2018 [facility] White Blood 9.6 Normal 3.5 -[address] Count 10^3/uL 0.8 [place] [address] [phone] Red Blood Count 4.55 10^6/uL Normal 4.18-5.48 Hemoglobin 15.4 g/dL Normal 14.0-18.0 Hematocrit 46 % Normal 42-52 Mean Corpuscular Volume 100 fL High 80-94 Mean Corpuscular Hemoglobin 34 pg High 27-31 Mean Corpuscular HGB Conc 34 g/dL Normal 31-36 Red Cell Distribution Width 15 % Normal 10-15 Platelet Count 112 10^3/uL Low 150-450 Mean Platelet Volume 9.7 fL Normal 7.4-10.4 Abs Neutrophils 6.8 10^3/uL Normal 1.5-7.7 Abs Lymphocytes 2.0 10^3/uL Normal 1.0-4.8 Abs Monocytes 0.7 10^3/uL Normal 0-0.8 Abs Eosinophils 0.1 10^3/uL Normal 0-0.6 Abs Basophils 0.0 10^3/uL Normal 0-0.2 Abs Nucleated RBC 0.1 10^3/uL Granulocyte % 71.2 % Lymphocyte % 20.4 % Monocyte % 7.5 % Eosinophil % 0.7 % Basophil % 0.2 % Nucleated Red Blood Cells % 0.5 Comp Metabolic 11/11/2018 [facility] Sodium 142 mmol/L Normal 135-[address] [place] [address] [phone] Chloride 109 mmol/L Normal 101-111 Co2 Carbon Dioxide 24 mmol/L Normal 22-32 Glucose 94 mg/dL Normal 70-100 Blood Urea Nitrogen 27 mg/dL High 6-24 Creatinine 1.72 mg/dL High 0.67-1.17 BUN/Creatinine Ratio 15.7 Normal 8-20 Calcium 9.7 mg/dL Normal 8.6-10.3 Total Protein 6.5 g/dL Normal 6.4-8.9 Albumin 4.5 g/dL Normal 3.2-5.2 Globulin 2.0 g/dL Normal 2-4 Albumin/Globulin Ratio 2.3 Normal 1-3 Total Bilirubin 1.40 mg/dL High 0.2-1.0 Alkaline Phosphatase 84 U/L Normal 34-104 Alt 20 U/L Normal 7-52 Ast 21 U/L Normal 13-39 Egfr Non- 40.0 >60 Egfr 48.4 >60 18 Potassium 5.1 mmol/L High 3.5-5.0 Anion Gap 9 mmol/L Normal 2-11 Laboratory test 11/11/2018 [facility] C Reactive 1.35 mg/L Normal <8.[address] [place] [address] [phone] Erythrocyte Sed Rate 1 mm/Hr Normal 0-19 1 ORDERED:11/11/18 :05/14/19 STANDING ORDER 2 ORDERED:11/11/18 :05/14/19 STANDING ORDER 3 ADDITIONAL INFORMATION Reference range for patients 11 years and older is based on upright A.M. collection from subjects without sodium restrictions. This test was developed and its performance characteristics determined by [facility] in a manner consistent with CLIA requirements. This test has not been cleared or approved by the U.S. Food and Drug Administration. Test Performed by: [facility] [place] [address] Skip Miner Blasting: Pedro Luis Barraza M.D. Ph.D.; CLIA# [id number] 4 REFERENCE VALUE (Peripheral vein specimen) Na-deplete, upright: Mean: 5.9 Range: 2.9-10.8 Na-replete, upright: Mean: 1.0 Range: < or =0.6-3.0 ADDITIONAL INFORMATION Testing performed by Liquid Chromatography-Tandem Mass Spectrometry (LC-MS/MS). This test was developed and its performance characteristics determined by [facility] in a manner consistent with CLIA requirements. This test has not been cleared or approved by the U.S. Food and Drug Administration. Test Performed by: [facility] [place] [address] Skip Miner Blasting: Pedro Luis Barraza M.D. Ph.D.; CLIA# [id number] 5 AM 8.7-22.4 PM <10 6 Therapeutic target for the treatment of diabetes mellitus patients is <7% HBA1C, and in selective patients <6.0%. Please refer to [employer] diabetic care guidelines for further information. 7 Unable to calculate due to low microalbumin 8 REFERENCE VALUE 0.3300-1.94 9 REFERENCE VALUE 0.5700-2.63 10 REFERENCE VALUE 0.2600-1.65 Test Performed by: [facility] [place] [address] Skip Miner Blasting: Pedro Luis Barraza M.D. Ph.D.; CLIA# [id number] 11 RESULT: No apparent monoclonal protein on serum electrophoresis. Test Performed by: [facility] [place] [address] Skip Miner Blasting: Pedro Luis Barraza M.D. Ph.D.; CLIA# [id number] 12 RESULT: Albumin is the only protein detected. 13 ADDITIONAL INFORMATION On 11/05/2016 the total protein assay method changed resulting in approximately a 15% increase in protein values. Test Performed by: [facility] [place] [address] Skip Miner Blasting: Pedro Luis Barraza M.D. Ph.D.; CLIA# [id number] Test Performed by: [facility] [place] [id number] Skip Miner Blasting: Pedro Luis Barraza M.D. Ph.D.; CLIA# [id number] 14 Because ethnic data is not always readily [...] 15-29 5 Kidney failure <15 (or dialysis) 15 REFERENCE VALUE <0.4 (Negative) 16 REFERENCE VALUE <0.4 (Negative) Test Performed by: [facility] [place] [address] Skip Miner Blasting: Pedro Luis Barraza M.D. Ph.D.; CLIA# [id number] 17 REFERENCE VALUE <=1.0 (Negative) Test Performed by: [facility] [place] [address] Skip Miner Blasting: Pedro Luis Barraza M.D. Ph.D.; CLIA# [id number] 18 Because ethnic data is not always readily [...] 15-29 5 Kidney failure <15 (or dialysis) Procedures Date Code Description Status 04/26/2019 25169 EKG Tracing & Interpretation Completed 04/20/2019 74205 ECHO Transthoracic, Real-Time 2D With Doppler And Color Completed Flow 02/01/2019 94432 Pace Maker Eval W/Iterative Adjment Dual Lead Completed 02/01/2019 83017 Pace Maker Eval W/Iterative Adjment Dual Lead Completed 01/29/2019 Inject/Drain Joint/Bursa Major W/O US Completed 12/07/2018 Inject/Drain Joint/Bursa Major W/O US Completed Medical Devices Description No Information Available Encounters Type Date Location Provider Dx Diagnosis Office Visit 03/22/2019 Rheumatology Flex Russell, M06.4 Inflammatory 3:30p [facility] [employer] polyarthropathy Ccmob M1A.9xx0 Chronic gout, unspecified, without tophus (tophi) N18.3 Chronic kidney disease, stage 3 (moderate) D69.6 Thrombocytopenia, unspecified 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, right knee Z79.899 Other mcc (current) drug therapy Office Visit 03/01/2019 1:45p [facility] Maame Martínez, M25.561 Pain in right at [place] 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, right knee Office Visit 02/10/2019 [facility]phrology Radha E27.40 Unspecified 1:00p MD Melvin adrenocortical insufficiency N18.3 Chronic kidney disease, stage 3 (moderate) I95.89 Other hypotension Office Visit 01/29/2019 [facility] M17.31 Unilateral 10:00a Orthopedics at [place] Martínez post-traumatic [place] osteoarthritis, right knee M25.561 Pain in right knee M72.2 Plantar fascial fibromatosis Office Visit 12/07/2018 Ricardo Isabel M06.4 Inflammatory 2:30p Orthopedics at [place] Martínez polyarthropathy [place] M25.562 Pain in left knee M25.462 Effusion, left knee M17.12 Unilateral primary osteoarthritis, left 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, right knee M25.561 Pain in right knee M25.461 Effusion, right knee Office Visit 11/16/2018 Rheumatology Flex M06.4 Inflammatory 3:30p [facility] [place], [employer] polyarthropathy Ccmob M1A.9xx0 Chronic gout, unspecified, without tophus (tophi) N18.3 Chronic kidney disease, stage 3 (moderate) 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, right knee Z79.899 Other mcc (current) drug therapy Assessments Date Code Description Provider 04/27/2019 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 04/26/2019 I77.810 Thoracic aortic ectasia Maikol Menezes M.D., [facility] 04/20/2019 I77.810 Thoracic aortic ectasia Maikol Menezes M.D., [facility] 04/20/2019 I77.810 Thoracic aortic ectasia Traveling ECHO 2 03/22/2019 M06.4 Inflammatory polyarthropathy Zsofia [place], [employer] 03/22/2019 M1A.9xx0 Chronic gout, unspecified, without Zsofia [place], [employer] tophus (tophi) 03/22/2019 N18.3 Chronic kidney disease, stage 3 Zsofia [place], [employer] (moderate) 03/22/2019 D69.6 Thrombocytopenia, unspecified Zsofia [facility], [employer] 03/22/2019 M17.31 Unilateral post-traumatic Zsofia [place], [employer] osteoarthritis, right knee 03/22/2019 Z79.899 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 03/01/2019 M17.31 Unilateral post-traumatic Maame Martínez M.D. osteoarthritis, right knee 02/10/2019 E27.40 Unspecified adrenocortical Radha Charles MD insufficiency 02/10/2019 N18.3 Chronic kidney disease, stage 3 Radha Charles MD (moderate) 02/10/2019 I95.89 Other hypotension Radha Charles MD 02/01/2019 Z95.0 Presence of cardiac pacemaker Maikol Menezes M.D., [facility] 02/01/2019 Z95.0 Presence of cardiac pacemaker Ica Pacer Schedule 02/01/2019 I44.2 Atrioventricular block, complete Ica Pacer Schedule 01/29/2019 M17.31 Unilateral post-traumatic Maame Martínez M.D. osteoarthritis, right knee 01/29/2019 M25.561 Pain in right knee Maame Martínez M.D. 01/29/2019 M72.2 Plantar fascial fibromatosis Maame Mauricio, M.D. 12/07/2018 M06.4 Inflammatory polyarthropathy Maame Martínez [...] Maame Martínez M.D. 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 at [facility]05/14/2019 1:00 pm - Maame Martínez M.D. at [facility] at [facility]4/27/2019 - Quinn Dominguez MDE27.3 Drug-induced adrenocortical insufficiencyNew Medication:Cosyntropin 0.25 mg - 250mcg intramuscular once in officeNew Labs:Acth, Ordered: 04/27/19Cortisol, Ordered: 04/27/19Dhea Sulfate, Ordered: 04/27/19Free T4 (Free Thyroxine), Ordered: 04/27/19TSH (Thyroid Stim Horm), Ordered: 04/27/19Prolactin, Ordered: 04/27/19Testosterone Total, Ordered : 04/27/19Sex Hormone Binding Globulin, Ordered: 04/27/19Cortisol, Ordered: Instructions:1. Blood tests and Cosyntropin stimulation test. 2. Continue fludrocortisone for symptom. Functional Status Description No Information Available Mental Status Description No Information Available Referrals Refer to Dr Reason for Referral Status Appt Date Quinn Dominguez MD low aldosterone level and cortisol level Patient Notified 04/27/2019 on fludricortisone for more than 3 years h/o steroid use a few months ago for arthiritis eval for adrenal insufficiency [address] [place] [address] [phone]
--- OUTSIDE RECORDS SUMMARY | 2019-05-25 07:21 | XMS REPORT | Continuity of Care Document ---
:1950 External Reference #:[id number] Author Name Maikol Menezes M.D., [facility] (transmitted by agent of provider Jennie Naranjo) [place] [address] Care Team Providers Name Role Phone Erick Petty MD - Family Medicine Care Team Information People Greeter [phone] Problems Active Problems Provider Date Multiple joint pain Jason Fuentes M.D. Onset: 10/20/2012 Gouty arthropathy Jason Fuentes M.D. Onset: 10/20/2012 Uric acid urolithiasis Jason Fuentes M.D. Onset: 10/20/2012 Syncope and collapse Gatito Hdz M.D., [facility], Onset: 03/23/2013 [facility] Chronic ischemic heart disease Gatito Hdz M.D., [facility], Onset: 03/23/2013 [facility] Hyperlipidemia Gatito Hdz M.D., [facility], Onset: 03/23/2013 [facility] Complete atrioventricular block Gatito Hdz M.D., [facility], Onset: 11/30/2013 [facility] Atrial flutter Gatito Hdz M.D., [facility], Onset: 11/30/2013 [facility] Mixed hyperlipidemia Gatito Hdz M.D., [facility], Onset: 06/19/2015 [facility] Cardiac pacemaker in situ Gatito Hdz M.D., [facility], Onset: 07/03/2016 [facility] Essential hypertension Gatito Hdz M.D., [facility], Onset: 07/03/2016 [facility] Atherosclerotic heart disease of Gatito Hdz M.D., [facility], Onset: 06/16/2017 [facility] coronary artery without angina [facility] pectoris Localized, secondary osteoarthritis Maame Martínez M.D. Onset: 12/10/2017 Inflammatory polyarthropathy Maame Martínez M.D. Onset: 12/10/2017 Difficulty breathing Maikol Menezes M.D., [facility], Onset: 06/15/2018 [facility] Atherosclerotic heart disease of Maikol Menezes M.D., [facility], Onset: 2018 [place] coronary artery with other [facility] forms of angina pectoris Thoracic aortic ectasia Maikol Menezes M.D., [facility], Onset: 07/07/2018 [facility] Encounter for removal of internal Catarina Perry MD Onset: 07/14/2018 fixation device Localized, primary osteoarthritis Maame Martínez M.D. Onset: 12/07/2018 Social History Type Date Description Comments Sex Unknown Tobacco Use Start: Unknown Never Smoked Cigarettes Smoking Status Reviewed: 04/26/19 Never Smoked Cigarettes ETOH Use Denies alcohol use Tobacco Use Start: Unknown Patient has never smoked Recreational Drug Use Denies Drug Use Exercise Type/Frequency Exercises regularly walking, when arthritis not bothering him Allergies, Adverse Reactions, Alerts Active Allergies Reaction Severity Comments Date Lovaza 10/03/2017 Simvastatin 10/03/2017 Zetia 10/03/2017 Inactive Allergies NKDA 10/20/2012 Medications Active Medications SIG Qnty Indications Ordering Date Provider Folic Acid Take One Tablet 30tabs Z79.899 Flex Russell, 05/27/2017 1mg Tablets By Mouth Every DISH STACKER Day Allopurinol Take Two Tablets 180tabs M10.00 Flex Russell, 03/20/2017 100mg Tablets By Mouth Every DISH STACKER Day Metoprolol Succinate ER 1 tab by mouth 90tabs I48.92 Maikol Grossman 11/30/2013 every day [facility] Menezes, 25mg Tablets ER 24HR [facility] Aspir-81 1 po qd Other Ordering 10/20/[address] Provider Vitamin D po qd 30caps Other Ordering 10/20/2012 1000Unit Capsules Provider Fludrocortisone Acetate 1 tab everyday 30tabs Unknown 0.1mg Tablets Fish Oil Burp-Less 2 by mouth daily Unknown 1000mg Capsules Vitamin C 1 by mouth every Unknown 500mg Tablets day Medications Administered in Office Medication SIG Qnty Indications Ordering Provider Date Ratna 40MG Maame Martínez M.D. 01/29/2019 Injection Agomedrol 40MG Maame Martínez M.D. 12/07/2018 Injection Depomedrol [...] Available Vital Signs Date Vital Result Comment 04/26/2019 12:59pm Height 68 inches 5'8" Weight 186.00 lb with boots Heart Rate 64 /min BP Systolic Sitting 122 mmHg Rue reg cuff BP Diastolic Sitting 86 mmHg Rue reg cuff BP Systolic Standing 108 mmHg Rue reg cuff BP Diastolic Standing 80 mmHg Rue reg cuff Respiratory Rate 16 /min BMI (Body Mass Index) 28.3 kg/m2 Ejection Fraction 55-60% ECHO 04/20/2019 03/22/2019 3:07pm Height 68 inches 5'8" Weight 181.25 lb Heart Rate 81 /min BP Systolic 120 mmHg BP Diastolic 69 mmHg Body Temperature 97.5 F O2 % BldC Oximetry 97 % BMI (Body Mass Index) 27.6 kg/m2 Results Test Acquired Date Facility Test Result H/L Range Note Laboratory test 02/05/2019 [facility] Erythrocyte Sed 0 mm/Hr Normal 0-19 [address] [place] [address] [phone] C Reactive Protein 1.47 mg/L Normal <8.01 2 Laboratory test 02/05/2019 [facility] Aldosterone <4.0 ng/dL <=21 [address] [place] [address] [phone] Renin <0.6 ng/mL/h 4 Cortisol 2.13 g/dL 5 TSH (Thyroid Stim Horm) 1.58 mcIU/mL Normal 0.34-5.60 Hemoglobin A1c (Glyco HGB) 5.6 % Normal 4.0-5.6 6 Urine Microalbumin 02/05/2019 [facility] Ur Microalbumin < 15.[address] (mg/L) mg/[place] [address] [phone] Urine Creatinine 59.65 mg/dL Urine Microalbumin/Creatinine TNP <31 7 Laboratory test 02/05/2019 [facility] Total Protein < 4 mg/dL finding [address] Random Urine [place] [address] [phone] Creatinine Random Urine 59.65 mg/dL [place]/Lambda Free 02/05/2019 [facility] [place] Free 2.17 mg/dL Abnormal 8 Light Chains Ser [address] [place] [address] [phone] Lambda Free Light Chain 1.68 mg/dL 9 [place]/Lambda Free Light Chain 1.29 10 Protein 02/05/2019 [facility] Total 6.4 g/dL 6.3 - Electrophoresis [address] Protein(Pep) 7.9 [place] [address] [phone] Albumin 3.7 g/dL 3.4-4.7 Alpha-1 Globulin 0.2 g/dL 0.1-0.3 Alpha-2 Globulin 0.8 g/dL 0.6-1.0 Beta Globulin 1.0 g/dL 0.7-1.2 Gamma Globulin 0.8 g/dL 0.6-1.6 Albumin/Globulin Ratio 1.39 Impression See Comment 11 Urine Protein Elctrophoresis 02/05/2019 [facility] Albumin 100 % (RDM) [address] [place] [address] [phone] Impression See Comment 12 Total Protein(Pep) Urine <4 mg/dL 13 Total Protein 24HR 02/05/2019 [facility] Urine Collection Time 24 hr Urine [address] [place] [address] [phone] Urine Total Volume 2450 mL Urine Total Protein/24HR 269 mg/24Hr High 0-165 Creatinine 02/05/2019 [facility] Creatinine, 1.36 High 0.51- 0.[address] Serum mg/[place] [address] [phone] Urine Collection Time 24 hr Urine Total Volume 2450 mL Creatinine Clearance 68 mL/min Low 97-137 Comp Metabolic 02/05/2019 [facility] Sodium 143 mmol/L Normal 135-[address] [place] [address] [phone] Potassium 4.2 mmol/L Normal 3.5-5.0 Chloride 108 [...] Egfr 62.9 >60 14 CBC Auto 02/05/2019 [facility] White Blood 9.4 10^3/uL Normal 3.5-10.[address] [place] [address] [phone] Red Blood Count 4.43 10^6/uL Normal 4.18-5.48 [...] Cells % 0.0 Anca Panel For 02/05/2019 [facility] Myeloperoxidase AB < 0.2 U [address] [place] [address] [phone] Proteinase 3 AB < 0.2 U 16 Laboratory test 02/05/2019 [facility] Anti Nuclear 0.1 U [address] [place] [address] [phone] CBC Auto Diff 11/11/2018 [facility] White Blood 9.6 Normal 3.5 -[address] Count 10^3/uL 0.8 [place] [address] [phone] Red Blood Count 4.55 10^6/uL Normal 4.18-5.48 [...] Blood Cells % 0.5 Comp Metabolic 11/11/2018 [facility] Sodium 142 mmol/L Normal 135-145 Panel [address] [place] [address] [phone] Chloride 109 mmol/L Normal 101-111 Co2 Carbon [...] 9 mmol/L Normal 2-11 Laboratory test 11/11/2018 [facility] C Reactive 1.35 mg/L Normal <8.01 finding [address] [facility] [place] [address] [phone] Erythrocyte Sed Rate 1 mm/Hr Normal 0-19 1 ORDERED:11/11/18 :05/14/19 STANDING ORDER 2 ORDERED:11/11/18 :05/14/19 STANDING ORDER 3 ADDITIONAL INFORMATION Reference range for patients 11 years and older is based on upright A.M. collection from subjects without sodium restrictions. This test was developed and its performance characteristics determined by [facility] in a manner consistent with CLIA requirements. This test has not been cleared or approved by the U.S. Food and Drug Administration. Test Performed by: [facility] [address] [place] [address] Business Development Representative: Pedro Luis Barraza M.D. Ph.D.; CLIA# [id number] 4 REFERENCE VALUE (Peripheral vein specimen) Na-deplete, upright: Mean: 5.9 Range: 2.9-10.8 Na-replete, upright: Mean: 1.0 Range: < or =0.6-3.0 ADDITIONAL INFORMATION Testing performed by Liquid Chromatography-Tandem Mass Spectrometry (LC-MS/MS). This test was developed and its performance characteristics determined by [facility] in a manner consistent with CLIA requirements. This test has not been cleared or approved by the U.S. Food and Drug Administration. Test Performed by: [facility] [place] [employer] [facility] [place] [address] Business Development Representative: Pedro Luis Barraza M.D. Ph.D.; CLIA# [id number] 5 AM 8.7-22.4 PM <10 6 Therapeutic target for the treatment of diabetes mellitus patients is <7% HBA1C, and in selective patients <6.0%. Please refer to [place] [employer] diabetic care guidelines for further information. 7 Unable to calculate due to low microalbumin 8 REFERENCE VALUE 0.3300-1.94 9 REFERENCE VALUE 0.5700-2.63 10 REFERENCE VALUE 0.2600-1.65 Test Performed by: [facility] [address] [place] [address] Business Development Representative: Pedro Luis Barraza M.D. Ph.D.; CLIA# [id number] 11 RESULT: No apparent monoclonal protein on serum electrophoresis. Test Performed by: [facility] [place] [address] Business Development Representative: Pedro Luis Barraza M.D. Ph.D.; CLIA# [id number] 12 RESULT: Albumin is the only protein detected. 13 ADDITIONAL INFORMATION On 11/05/2016 the total protein assay method changed resulting in approximately a 15% increase in protein values. Test Performed by: [facility] [place] [address] Business Development Representative: Pedro Luis Barraza M.D. Ph.D.; CLIA# [id number] Test Performed by: [facility] - [address] [address] Business Development Representative: Pedro Luis Barraza M.D. Ph.D.; CLIA# [id number] 14 Because ethnic data is not always [...] REFERENCE VALUE <0.4 (Negative) Test Performed by: [facility] [place] [address] Business Development Representative: Pedro Luis Barraza M.D. Ph.D.; CLIA# [id number] 17 REFERENCE VALUE <=1.0 (Negative) Test Performed by: [facility] [place] [address] Business Development Representative: Pedro Luis Barraza M.D. Ph.D.; CLIA# [id number] 18 Because ethnic data is not always [...] dialysis) Procedures Date Code Description Status 04/26/2019 22042 EKG Tracing & Interpretation Completed 04/20/2019 99901 ECHO Transthoracic, Real-Time 2D With Doppler And Color Completed Flow 02/01/2019 10465 Pace Maker Eval W/Iterative Adjment Dual Lead Completed 02/01/2019 60033 Pace Maker Eval W/Iterative Adjment Dual Lead Completed 01/29/201932137 Inject/Drain Joint/Bursa Major W/O US Completed 12/07/2018 Inject/Drain Joint/Bursa Major W/O US Completed 10/26/2018 29557 Inject/Drain Joint/Bursa Major W/O US Completed Medical Devices Description No Information Available Encounters Type Date Location Provider Dx Diagnosis Office Visit 03/22/2019 Rheumatology Flex Russell, M06.4 Inflammatory 3:30p [facility] - [facility] polyarthropathy Ccmob M1A.9xx0 Chronic gout, unspecified, without tophus (tophi) N18.3 Chronic kidney disease, stage 3 (moderate) D69.6 Thrombocytopenia, unspecified 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, right knee Z79.899 Other intermission coordinator (current) drug therapy Office Visit 03/01/2019 1:45p [facility] Mauricio, M25.561 Pain in right at [place]. 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, right knee Office Visit 02/10/2019 [facility] Nephrology Radha E27.40 Unspecified 1:00p MD Melvin adrenocortical insufficiency N18.3 Chronic kidney disease, stage 3 (moderate) I95.89 Other hypotension Office Visit 01/29/2019 [facility] M17.31 Unilateral 10:00a [facility] at [facility] post-traumatic [place] osteoarthritis, right knee M25.561 Pain in right knee M72.2 Plantar fascial fibromatosis Office Visit 12/07/2018 Ricardo Isabel M06.4 Inflammatory 2:30p [facility] polyarthropathy [place] M25.562 Pain in left knee M25.462 Effusion, left knee M17.12 Unilateral primary osteoarthritis, left 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, right knee M25.561 Pain in right knee M25.461 Effusion, right knee Office Visit 11/16/2018 Rheumatology Flex M06.4 Inflammatory 3:30p [facility] BETO RussellP polyarthropathy Ccmob M1A.9xx0 Chronic gout, unspecified, without tophus (tophi) N18.3 Chronic kidney disease, stage 3 (moderate) 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, right knee Z79.899 Other nursing home (current) drug therapy Office Visit 10/26/2018 Ricardo Isabel M17.31 Unilateral 1:15p [facility] post-traumatic [place] osteoarthritis, right knee M25.561 Pain in right knee M25.461 Effusion, right knee Assessments Date Code Description Provider 04/26/2019 I77.810 Thoracic aortic ectasia Maikol Menezes M.D., [facility] 04/20/2019 I77.810 Thoracic aortic ectasia Maikol Menezes M.D., [facility] 04/20/2019 I77.810 Thoracic aortic ectasia Traveling ECHO 2 03/22/2019 M06.4 Inflammatory polyarthropathy Zsofia Drew, DISH STACKER 03/22/2019 M1A.9xx0 Chronic gout, unspecified, without Zsofia Drew, DISH STACKER tophus (tophi) 03/22/2019 N18.3 Chronic kidney disease, stage 3 Zsofia Drew, DISH STACKER (moderate) 03/22/2019 D69.6 Thrombocytopenia, unspecified Zsofia Drew, DISH STACKER 03/22/2019 M17.31 Unilateral post-traumatic Zsofia Drew, DISH STACKER osteoarthritis, right knee 03/22/2019 Z79.899 Other intermission coordinator (current) drug Zsofia Drew, DISH STACKER therapy 03/01/2019 M25.561 Pain in right knee Maame Martínez M.D. 03/01/2019 M17.31 Unilateral post-traumatic Maame Martínze M.D. osteoarthritis, right knee 02/10/2019 E27.40 Unspecified adrenocortical Radha Charles MD insufficiency 02/10/2019 N18.3 Chronic kidney disease, stage 3 Radha Charles MD (moderate) 02/10/2019 I95.89 Other hypotension Radha Charles MD 02/01/2019 Z95.0 Presence of cardiac pacemaker Maikol Menezes M.D., [facility] 02/01/2019 Z95.0 Presence of cardiac pacemaker Ica [...] Amaya 11/16/2018 M1A.9xx0 Chronic gout, unspecified, without Suziofia Drew, DISH STACKER tophus (tophi) 11/16/2018 N18.3 Chronic kidney disease, stage 3 Flex Russell DISH STACKER (moderate) 11/16/2018 M17.31 Unilateral post-traumatic SuziofiPAIGE [place] osteoarthritis, right knee 11/16/2018 Z79.899 Other nursing home (current) drug BETO AmayaP therapy 10/26/2018 M17.31 Unilateral post-traumatic Maame Martínez M.D. osteoarthritis, right knee 10/26/2018 M25.561 Pain in right knee Maame Martínez M.D. 10/26/2018 M25.461 Effusion, right knee Maame Martínez M.D. Plan of Treatment Future Appointment(s):06/28/2019 1:30 pm - PAIGE Amaya at [facility]07/05/2019 10:00 am - Blanquita Cisneros MD at [facility] [id number]/14/2020 8:30 am - Maame Martínez M.D. at [facility] at [id number]/14/2019 1:00 pm - Maame Martínez M.D. at [facility] at [id number] - Maikol Menezes M.D., [facility], UHHWSA75.810 Thoracic aortic ectasiaNew Orders:Echocardiogram, Ordered: 04/26/19Comments:As discussed, your heart and aorta appear stable. I feel you may have needed right knee replacementwith Dr. Martínez as is being scheduled [facility]. Please avoid lifting more than 30 lbs.Follow up:one year after echo Functional Status Description No Information Available Mental Status Description No Information Available Referrals Refer to Reason for Referral Status Appt Date Quinn Domingeuz MD low aldosterone level and cortisol level Patient Notified 04/27/2019 on fludricortisone for more than 3 years h/o steroid use a few months ago for arthiritis eval for adrenal insufficiency [address] [place] [address] [phone]
[2019-05-25] MEDS ORDERED: ceFAZolin 2 GM PREMIX in ORs 2 GM/50 ML BAG ONE (07:58)
[2019-05-25] MEDS ORDERED: Buffered Lidocaine 1% SYRIN* 1 ML/SYRINGE INTRADERM ONE (07:58)
[2019-05-25] MEDS ORDERED: Famotidine IV* 10 MG/ML 2 ML (20 mg) ONE (07:58)
[2019-05-25] MEDS ORDERED: Midazolam* 1 MG/ML 5 ML VIAL (5 MG) ONE (08:24)
[2019-05-25] MEDS ORDERED: ROPIVACAINE 5 MG/ML 30 ML BTL (0.5%) ONE ×3 (10:10→10:21)
[2019-05-25] MEDS ORDERED: Lidocaine 1% MPF ** 5 ML VIAL ONE (10:21)
[2019-05-25] MEDS ORDERED: KETAMINE HCL* 50 MG/ML 10 ML VIAL ONE (10:59)
[2019-05-25] MEDS ORDERED: Midazolam* 1 MG/ML 2 ML VIAL (2 MG) ONE ×2 (11:01→12:04)
[2019-05-25] MEDS ORDERED: Propofol* 10 MG/ML 20 ML BTL ONE ×3 (11:15→12:41)
[2019-05-25] MEDS ORDERED: Dexamethasone IV* 4 MG/ML 1 ML (4 MG) ONE (11:15)
[2019-05-25] MEDS ORDERED: DiMENhydriNATE IV* 50 MG/ML VIAL ONE (11:15)
[2019-05-25] MEDS ORDERED: Ketorolac INJ* 30 MG/ML 1 ML VIAL ONE (11:15)
[2019-05-25] MEDS ORDERED: Glycopyrrolate IV* 0.2 MG/ML 1 ML VIAL ONE (11:15)
[2019-05-25] MEDS ORDERED: Ondansetron INJ* 2 MG/ML VIAL ONE (11:15)
[2019-05-25] MEDS ORDERED: Lidocaine 2% PF * 5 ML VIAL ONE (11:15)
[2019-05-25] MEDS ORDERED: Polyethylene Glycol 3350* 17 GM PACKET PO PRN (11:43)
[2019-05-25] MEDS ORDERED: Ondansetron ODT TAB* 4 MG PO PRN (11:43)
[2019-05-25] MEDS ORDERED: Magnesium Hydroxide LIQ* 30 ML UDC PO PRN (11:43)
[2019-05-25] MEDS ORDERED: traMADol TAB* 50 MG PO PRN (11:43)
[2019-05-25] MEDS ORDERED: Ondansetron TAB* 4 MG PO PRN (11:43)
[2019-05-25] MEDS ORDERED: Cyclobenzaprine TAB* 10 MG PO PRN (11:43)
[2019-05-25] MEDS ORDERED: Ondansetron INJ* 2 MG/ML VIAL IV PRN (11:43)
[2019-05-25] MEDS ORDERED: Morphine INJ* 2 MG/ML 1 ML SYRINGE (TWO MG - NEW SYRINGE VERSION) IV PRN (11:43)
[2019-05-25] MEDS ORDERED: diPHENhydraMINE PO* 25 MG PO PRN (11:43)
[2019-05-25] MEDS ORDERED: diPHENhydraMINE IV* 50 MG/ML 1 ml VIAL (BENADRYL) IV PRN (11:43)
[2019-05-25] MEDS ORDERED: oxyCODONE TAB* 5 MG TAB PO PRN (11:43)
[2019-05-25] MEDS ORDERED: Naloxone* 0.4 MG/ML 1 ML VIAL IV PRN (12:27)
[2019-05-25] MEDS ORDERED: oxyCODONE/Acetamin 5/325 MG* TAB PO PRN (12:27)
[2019-05-25] MEDS ORDERED: DiMENhydriNATE IV* 50 MG/ML VIAL IV PUSH PRN (12:27)
[2019-05-25] MEDS ORDERED: HYDROmorphone INJ1* 1 MG/ML SYRINGE IV PRN (12:27)
--- NOTE | 2019-05-25 15:16 | PN ---
Progress Note - Progress Note Date of Service: 05/25/19 Note: Pt seen POD 0 sp rtk in PACU. He feels well, pain is controlled. Denies CP, SOB , nausea. RLE DF/PF intact, DP2+, sensation intact to light touch distally with great toe sensation still returning.
[2019-05-25] MEDS: Lactated Ringers 1000 ML Bag* 1,000 ML IV SCH (15:30)
--- NOTE | 2019-05-25 17:20 | CONS ---
CC: Dr. Petty; Dr. Martínez; Dr. Cisneros, Nephrology; Dr. Tabor, Rheumatology; Dr. Quinn Dmoinguez, Endocrinology; Dr. Menezes, Cardiology * CONSULTATION REPORT: DATE OF CONSULT: 05/25/19 PRIMARY CARE PROVIDER: Dr. Petty. REQUESTING PHYSICIAN: Dr. Martínez from Orthopedic Surgery. REASON FOR CONSULT: In regards to medical co-management of the patient's chronic problems of hypertension, chronic kidney disease, coronary artery disease, status post pacemaker, in a patient status post right total knee replacement. CHIEF COMPLAINT: Right knee pain. HISTORY OF PRESENT ILLNESS: Obie Dee is a 68-year-old male with a history of heart block, status post pacemaker placement; coronary artery disease , status post 2 stents in 2011, who had initially injured his knee in the and who had a tibial ORIF of the right leg many years ago. The hardware was removed last year and today he is status post total right knee replacement by Dr. Martínez. Currently, he does not actually have any postoperative pain. He is feeling well. He denies any chest pain or shortness of breath. Medicine consult was requested due to his chronic medical conditions. PAST MEDICAL HISTORY: 1. History of chronic kidney disease, stage 3. 2. Coronary artery disease, status post 2 stents in 2011. 3. History of DVT and PE. 4. Right tibial ORIF many years ago, status post removal of the hardware a year ago. 5. History of kidney stones. 6. Paroxysmal atrial flutter. 7. Status post pacemaker placement for complete heart block. 8. Hypotension, for which the patient is on fludrocortisone. Please note that in 2013 after the pacemaker was placed, the patient suffered from iatrogenic pneumothorax. MEDICATIONS AT HOME: Include: 1. Vitamin D a tablet a day. 2. Vitamin C a tablet daily. 3. [place]-3 fatty acids 2 capsules daily. 4. Metoprolol succinate 150 mg daily. 5. Folic acid 1 mg daily. 6. Flonase nasal spray 2 sprays both nostrils daily. 7. Florinef 1 tablet daily at 0.1 mg. 8. Aspirin 81 mg daily. 9. Allopurinol 100 mg b.i.d. ALLERGIES: Includes LOVAZA and ZETIA, both caused muscle aches. FAMILY HISTORY: Positive for both parents with a history of heart disease. REVIEW OF SYSTEMS: Please see history of present illness. In addition to the above mentioned, the patient stated that he has chronic right leg edema. All the remaining 12 systems were reviewed with the patient and were otherwise negative. PHYSICAL EXAM: Blood pressure 111/65, heart rate of 60 and regular, respiratory rate 16, oxygen saturation 97% on room air, temperature of 96.8. General: The patient is a very pleasant 68-year-old male, who is in no acute distress. The patient is alert and oriented x3. HEENT: Head: Atraumatic, normocephalic. Eyes: Pupils equal, reactive to light and accommodation. Oropharynx clear. Mucosa moist. Neck: Supple. No JVD. No bruits bilaterally. Cardiovascular: Regular rate and rhythm. No murmur. Respiratory : Clear to auscultation bilaterally. Abdomen is soft, nontender. Bowel sounds present in all 4 quadrants. Extremities: There is trace right ankle edema. Pulses are +2 bilaterally. There is no clubbing or cyanosis. On evaluation of the right postoperative knee, the postoperative dressings are in place. The patient's knee is also covered with Cryo unit. The dressings were not removed for evaluation. Neuro Evaluation: Speech is clear. Cranial nerves II through XII grossly intact. Motor strength is 5/5 bilaterally. LABORATORY DATA: None currently. ASSESSMENT AND PLAN: 1. In regards to the patient's history of coronary artery disease, the patient is going to be continued on his aspirin and beta-mare. 2. The patient has hypotension, which is treated with Florinef. That will be continued. 3. The patient has chronic kidney disease, stage 3. His creatinine is going to be rechecked in the morning. 4. In regards to the patient's postoperative management of right knee replacement surgery, the patient was already placed on apixaban by Dr. Martínez. Physical therapy was already ordered. 5. For DVT prophylaxis, the patient is already on apixaban. 6. The patient's code status is full. His surrogate is his son Joni. TIME SPENT: Approximately 55 minutes was spent on consultation of this patient , more than half that time was spent [id number] with the patient during the interview and physical exam. Thank you very much for allowing our service to see your patient in consultation. We will follow tomorrow. [id number] #: [id number] [facility]
--- NOTE | 2019-05-25 19:13 | OP ---
Operative Report - Blank - Operative Report Date of Operation: 05/25/19 Note: JUANA DODGE 1950 Date of Surgery: 05/25/19 Maame Martínez MD Manager Nuclear: Dominique LILLY did help throughout the procedure with preparation of the knee, wound retraction, manipulation of the knee, and wound closure. Anesthesiologist: Keke Salvador MD Anesthesia Type: Spinal Preoperative Diagnosis: Right severe degenerative osteoarthritis of the knee Postoperative Diagnosis: As above Procedure Performed: Right Total Knee Arthroplasty Tourniquet time: 75 minutes Complications: None Specimen: Bone and cartilage from the right knee joint sent to pathology. Culture swabs sent to micro. Hardware Used: Cemented Hernandez [employer] Nephew total knee hardware was used - For the femur a size 7 right oxinium legion posterior stabilized femoral component, for the tibia a size 6 right rachel II tibial baseplate, for the insert a size 9mm 5-6 posterior stabilized articular polyethylene insert, and for the patella a size 38 3-peg all poly patella. Brief History/Indication: JUANA DODGE was known in clinic and had a history of severe right knee pain and swelling. He had prior tibial plateau fracture with ORIF and we took the hardware out [id number] to prepare for total knee replacement. He failed conservative treatment with anti-inflammatories, pain pills, intra-articular injections and physical therapy. He elected to undergo right total knee arthroplasty due to continued pain and decreased quality of life. Radiographs showed severe end stage osteoarthritis of the knee with bone on bone contact. Informed consent was obtained from the patient. He understood the risks of surgery included but were not limited to: bleeding, infection, damage to nearby structures, intraoperative fracture, nerve palsy, failure of the hardware, early loosening, knee stiffness or loss of motion, anesthesia complications, stroke, heart attack, blood clot and . He wished to proceed. Intra-Operative Findings: Intraoperatively the patient was noted to have severe loss of cartilage in all 3 compartments of the knee. He had 15 degree flexion and 12 degree valgus contracture/alignment to start the case. Description of the Procedure: JUANA DODGE was identified in the preanesthesia unit. His right knee was marked as the correct operative side. Informed consent was signed and placed in the chart. The patient was taken to the operating room and placed under anesthesia without complication. A sheridan catheter was placed. A tourniquet was placed on the right thigh. The right lower extremity was prepped and draped in the usual sterile fashion. Preoperative time-out was made to correctly identify the patient, side and site. Appropriate intraoperative antibiotics were given within one hour of incision. Tourniquet was inflated. A midline incision was made and carried sharply down to the extensor mechanism. A new 10 blade was used to make a standard medial parapatellar arthrotomy. The patella was subluxed laterally. Electrocautery was used to dissect soft tissue off the superomedial tibia to the midsagittal plane. The knee was flexed up. The anterior horn of the lateral meniscus and the ACL were sharply incised. A drill was used to enter the distal femur. The intramedullary distal femoral cutting guide was pinned on the distal femur. The oscillating saw was used to make the distal femoral cut. The external rotation guide was pinned on the distal femur and the distal femur was sized to a size 7. The size 7 multi-cutting jig was pinned on the distal femur. The oscillating saw was used to make the appropriate 4 chamfer cuts. Next the PCL was completely released. The extramedullary tibial cutting guide was pinned on the proximal tibia and the oscillating saw was used to make the proximal tibial cut perpendicular to the mechanical axis of the tibia. The bone was carefully removed. The knee was brought out into full extension. The spacer block was placed and had excellent fit with the knee in full extension. The medial and lateral ligaments were well balanced. The flexion and extension gaps were well balanced. The knee was flexed up. [employer] was placed both medially and laterally. Any remaining meniscus was removed with electrocautery. Curved osteotome was used to remove any posterior osteophytes. The tibial tray and drop damian were placed and confirmed a satisfactory tibial cut. The size 7 right femoral trial was impacted onto the distal femur. This trial had excellent fit and stability. The box for the posterior stabilized implant was prepared using a box cut osteotome and a reamer. Next a tibial tray trial and 9 mm insert trial was placed. The knee was taken through a range of motion and had full extension to 130 degrees of flexion. Patellofemoral tracking was satisfactory. The patella was inverted and sized to a size 38. Three peg holes were drilled through the size 38 drill guide. The trial patella was placed and the knee was taken through a range of motion. There was satisfactory patellofemoral tracking. All trials were removed. The tibia was subluxed anteriorly and sized to a size 6. The proximal tibial was prepared with a size 6 keel punch. All bony cut surfaces were irrigated with sterile saline and dried. Final implants were cemented into place starting with the tibia, followed by the femur, and last the patella. A 9 mm insert trial was placed and the knee was brought into full extension. Tourniquet was turned down and the knee was copiously irrigated with sterile saline. Electrocautery was used to obtain meticulous hemostasis. Once the cement had fully cured, the insert trial was removed. Any excess cement was removed from around the hardware and capsule. Final insert chosen was a 9 mm posterior stabilized Rachel II articular insert size 5-6. Stability of the insert was checked and noted to be stable. The extensor mechanism was closed using number 1 vicryls. The rest of the incision was closed in a layered fashion using 0 and 2-0 vicryls. The skin was closed using 3-0 nylon suture. Sterile xeroform, 4x4s and webril were used to cover the incision. Jonathan wrap and cold pack were used to cover the dressings. The patients anesthesia was reversed without difficulty. He was taken to the PACU in stable condition. Intended weight-bearing will be as tolerated.
[2019-05-25] MEDS: ceFAZolin 1 GM ADVAN(*) 1 GM in NS 0.9% 50 ML* 50 ML IVPB SCH (19:34)
[2019-05-25] MEDS: Allopurinol TAB* 100 MG PO SCH (22:17)
[2019-05-25] MEDS: Docusate CAP* 100 MG PO SCH (22:17)
[2019-05-25] MEDS: Magnesium Hydroxide LIQ* 30 ML UDC PO SCH (22:17)
[2019-05-25] MEDS: Acetaminophen TAB* 325 MG PO SCH (22:17)
[2019-05-26] MEDS: Lactated Ringers 1000 ML Bag* 1,000 ML IV SCH (02:17)
[2019-05-26] MEDS: ceFAZolin 1 GM ADVAN(*) 1 GM in NS 0.9% 50 ML* 50 ML IVPB SCH ×2 (03:19→11:58)
[2019-05-26 05:32] LABS: Hematocrit 31 % (42-52); Hemoglobin 10.4 g/dL (14.0-18.0); Mean Platelet Volume 8.3 fL (7.4-10.4); Platelet Count 124 10^3/uL (150-450)
[2019-05-26] MEDS: Acetaminophen TAB* 325 MG PO SCH ×2 (05:52→13:34)
[2019-05-26 05:53] LABS: BUN/Creatinine Ratio 17.1 (8-20); Calcium 8.1 mg/dL (8.6-10.3); EGFR African American 53.4 (>60); EGFR Non-African American 44.1 (>60); Potassium 4.5 mmol/L (3.5-5.0)
[2019-05-26] MEDS: oxyCODONE/Acetamin 5/325 MG* TAB PO PRN ×2 (05:55→11:58)
[2019-05-26] MEDS: Magnesium Hydroxide LIQ* 30 ML UDC PO SCH (08:24)
[2019-05-26] MEDS: Allopurinol TAB* 100 MG PO SCH (08:25)
[2019-05-26] MEDS: Docusate CAP* 100 MG PO SCH (08:25)
--- NOTE | 2019-05-26 08:48 | PN ---
Subjective Date of Service: 05/26/19 Interval History: Pt feels well, hopes to go home tonight Objective Active Medications: Acetaminophen (Tylenol Tab*) 975 mg PO Q8HR [facility] Last Admin: 05/26/19 05:52 Dose: Not Given Allopurinol (Zyloprim Tab*) 100 mg PO BID [facility] Last Admin: 05/26/19 08:25 Dose: 100 mg Apixaban (Eliquis*) 2.5 mg PO BID [facility] Last Admin: 05/26/19 08:25 Dose: 2.5 mg Aspirin (Aspirin 81 Mg Chew Tab*) [facility] [place] Admin: 05/26/19 08:24 Dose: 81 mg Bisacodyl (Dulcolax Supp*) 10 mg RI DAILY PRN PRN Reason: CONSTIPATION Cyclobenzaprine HCl (Flexeril Tab*) 10 mg PO Q6H PRN PRN Reason: SPASMS Diphenhydramine HCl (Benadryl Iv*) 25 mg IV Q6H PRN PRN Reason: PRURITIS Diphenhydramine HCl (Benadryl Po*) 25 mg PO Q6H PRN PRN Reason: PRURITIS Docusate Sodium (Colace Cap*) 100 mg PO BID [facility] Last Admin: 05/26/19 08:25 Dose: 100 mg Fludrocortisone Acetate (Florinef Tab*) 0.1 mg PO [facility] Last Admin: 05/26/19 08:25 Dose: 0.1 mg Fluticasone Propionate (Flonase Nasal [place] 50mcg*) 2 spray BOTH NARES [facility] Last Admin: 05/26/19 08:24 Dose: 2 spray Folic Acid (Folvite Tab*) 1 mg PO [facility] Last Admin: 05/26/19 08:25 Dose: 1 mg Cefazolin Sodium 1 gm/ Sodium (Chloride) 50 mls @ 200 mls/hr IVPB Q8H [facility] Stop: 05/26/19 11:44 Last Admin: 05/26/19 03:19 Dose: 200 mls/hr Lactated Ringer's (Lactated Ringers 1000 Ml Bag*) 1,000 mls @ 100 mls/hr IV PER RATE [facility] Last Admin: 05/26/19 02:17 Dose: 100 mls/hr Lactulose (Lactulose*) 30 ml PO BID PRN PRN Reason: CONSTIPATION Magnesium Hydroxide (Milk Of Magnesia Liq*) 30 ml PO BID [facility] Last Admin: 05/26/19 08:24 Dose: 30 ml Magnesium Hydroxide (Milk Of Magnesia Liq*) 30 ml PO Q6H PRN PRN Reason: CONSTIPATION Metoprolol Succinate (Toprol Xl Tab*) 25 mg PO DAILY [facility] Last Admin: 05/26/19 08:25 Dose: 25 mg Morphine Sulfate (Morphine Inj (Syringe))*) 2 mg IV Q4H PRN PRN Reason: Pain - Unrelieved Multivitamins (Theragran Tab*) 1 tab PO DAILY [facility] Last Admin: 05/26/19 08:25 Dose: 1 tab Ondansetron HCl (Zofran Inj*) 4 mg IV Q6H PRN PRN Reason: NAUSEA Ondansetron HCl (Zofran Odt Tab*) 4 mg PO Q6H PRN PRN Reason: NAUSEA Oxycodone HCl (Roxycodone Tab*) 10 mg PO Q4H PRN PRN Reason: Pain - Breakthrough Last Admin: 05/25/19 17:37 Dose: 10 mg Oxycodone/Acetaminophen (Percocet 5/325 Tab*) 2 tab PO Q4H PRN PRN Reason: PAIN - SEVERE Last Admin: 05/26/19 05:55 Dose: 2 tab Polyethylene Glycol/Electrolytes (Miralax*) 17 gm PO DAILY PRN PRN Reason: Constipation Tramadol HCl (Ultram*) 50 mg PO Q6H PRN PRN Reason: PAIN - MODERATE Last Admin: 05/25/19 22:17 Dose: 50 mg Vital Signs - 8 hr 05/26/19 05/26/19 05/26/19 00:58 04:01 05:55 Temperature 98.4 F Pulse Rate 72 Respiratory 14 16 16 Rate Blood Pressure 113/53 (mmHg) O2 Sat by Pulse 100 Oximetry 05/26/19 05/26/19 07:15 08:22 Temperature 98.1 F Pulse Rate 75 Respiratory 16 18 Rate Blood Pressure 124/64 (mmHg) O2 Sat by Pulse 98 Oximetry Oxygen Devices in Use Now: None Appearance: 68 yo m in nAD, aAOx3 Eyes: No Scleral Icterus, PERRLA Ears/Nose/Mouth/Throat: NL Teeth, Lips, Gums, Mucous Membranes Moist Neck: NL Appearance and Movements; NL JVP, Trachea Midline Respiratory: Symmetrical Chest Expansion and Respiratory Effort, Clear to Auscultation Cardiovascular: NL Sounds; No Murmurs; No JVD, RRR Abdominal: NL Sounds; No Tenderness; No Distention Lymphatic: No Cervical Adenopathy Extremities: No Clubbing, Cyanosis, - - trace r ankle juhi, r knee in post op dressings and cryo unit Skin: No Rash or Ulcers, No Nodules or Sclerosis Neurological: Alert and Oriented x 3, NL Muscle Strength and Tone Result Diagrams: 05/26/19 05:22 05/26/19 05:22 Microbiology and Other Data: Microbiology 05/25/19 11:34 Gram Stain - Final Wound - Knee Right Assess/Plan/Problems-Billing Assessment: 68 yo M with h/o hypotension(on fludrocortisone), pacer, DVT/PE, CAD (2x stent)CKD stage 3, s/p elective knee replacement on 05/25/19 - Patient Problems (1) Total knee replacement status Comment: R knee on 05/25/19 -as per ortho service (2) Hypotension Comment: chronic, controlled by fludrocortisone (3) CKD (chronic kidney disease) stage 3, GFR 30-59 ml/min Comment: creat at baseline (4) CAD (coronary artery disease) Comment: asymptomatic cont ASA, metoprolol (5) Postoperative anemia due to acute blood loss Comment: Hb at 10 today, no signs of acute bleeding cont to monitor start iron supplement (6) DVT prophylaxis Comment: Eliquis Status and Disposition: medicine consult, will follow
[2019-05-26] MEDS ORDERED: Fludrocortisone Acetate TAB* 0.1 MG PO SCH (09:00)
[2019-05-26] MEDS ORDERED: Metoprolol Succinate XL TAB* 25 MG PO SCH (09:00)
[2019-05-26] MEDS ORDERED: Ferrous Sulfate TAB* 325 MG PO SCH (09:00)
[2019-05-26] MEDS ORDERED: Folic Acid TAB* 1 MG PO SCH (09:00)
[2019-05-26] MEDS ORDERED: Fluticasone NASAL SPRAY 50MCG* 16 gm SPRAY BTL BOTH NARES SCH (09:00)
[2019-05-26] MEDS ORDERED: Aspirin 81 mg CHEW TAB* 81 MG TAB.CHEW PO SCH (09:00)
[2019-05-26] MEDS ORDERED: Apixaban* 2.5 MG TAB PO SCH (09:00)
[2019-05-26] MEDS ORDERED: Vitamin THERAPEUTIC TAB PO SCH (09:00)
--- NOTE | 2019-05-26 10:45 | PN ---
Progress Note - Progress Note Date of Service: 05/26/19 SOAP: Subjective: []Pt seen at bedside. He feels well without CP, SOB, dizziness, nausea. Knee pain is well controlled and he intends to go home later today. Objective: []Gen: NAD, appears well RLE: RIght knee dressing CDI, thigh sot, DF/PF intact, DP2+, sensation intact to light touch distally Calves supple and nontender without erythema, edema or palpable cords Assessment: []POD 1 sp right total knee replacement Plan: []WBAT PT eliquis 2.5 mg po bid x 30 days post op DC home with outpatient PT if meets PT goals today Vital Signs Temp 98.1 F 05/26/19 07:15 Pulse 75 05/26/19 07:15 Resp 18 05/26/19 08:22 BP 124/64 05/26/19 07:15 Pulse Ox 98 05/26/19 08:00 Intake & Output 05/25/19 05/26/19 05/26/19 18:59 06:59 18:59 Intake Total 2200 1474 1600 Output Total 1150 1160 Balance 0377 211 9652 Weight 183 lb 6.4 oz Intake: IV Fluids 2200 1014 ABX - CEFAZOLIN 58 LR 2200 956 Oral 460 1600 Output: Urine 10 Stone 1000 1150 Estimated Blood Loss 150 Other: # Bowel Movements 0 Laboratory Last Values Hgb 10.4 g/dL (14.0-18.0) L 05/26/19 05:22 Hct 31 % (42-52) L 05/26/19 05:22 Plt Count 124 10^3/uL (150-450) L 05/26/19 05:22 MPV 8.3 fL (7.4-10.4) 05/26/19 05:22 Sodium 138 mmol/L (135-145) 05/26/19 05:22 Potassium 4.5 mmol/L (3.5-5.0) 05/26/19 05:22 Chloride 108 mmol/L (101-111) 05/26/19 05:22 Carbon Dioxide 24 mmol/L (22-32) 05/26/19 05:22 Anion Gap 6 mmol/L (2-11) 05/26/19 05:22 BUN 27 mg/dL (6-24) H 05/26/19 05:22 Creatinine 1.58 mg/dL (0.67-1.17) H 05/26/19 05:22 Est GFR ( Amer) 53.4 (>60) 05/26/19 05:22 Est GFR (Non-Af Amer) 44.1 (>60) 05/26/19 05:22 BUN/Creatinine Ratio 17.1 (8-20) 05/26/19 05:22 Glucose 126 mg/dL (70-100) H 05/26/19 05:22 POC Glucose (mg/dL) 149 mg/dL (70-100) H 05/25/19 13:55 Calcium 8.1 mg/dL (8.6-10.3) L 05/26/19 05:22
--- NOTE | 2019-05-26 10:58 | DS ---
Orthopedic Discharge Summary - Discharge Summary Date of Admission:05/25/19 Date of Discharge: 05/26/19 Date of Surgery: 06/04/19 Attending Orthopedic Provider: Dr Martínez Pre-operative Diagnosis: Right knee osteoarthritis Operative Procedure: Right total knee replacement Disposition of Patient: home with outpatient physical therapy Condition of Patient: stable History: JUANA DODGE is a 68 year old M with years of increasingly severe right knee pain. Patient has failed conservative management and has elected to undergo a right total knee replacement Hospital Course: JUANA was admitted to [facility] on 05/25/19. Patient underwent a right total knee replacement without complication followed by a brief recovery in PACU and transfer to the Short Stay Surgical Unit in stable condition. Our hospitalist service, physical therapy also participated in this patients care. Post-op day 1: patient was alert and in no acute distress. Dressing was clean, dry and intact. Operative extremity dorsiflexion and plantarflexion intact, sensation intact to light touch distally, DP2+. Prior to discharge: dressing was changed, incision was clean, dry and intact. Patient was deemed to be medically and orthopedically stable for discharge. Physical therapy goals were met. Home Medications Medication Instructions Recorded Confirmed Type Aspirin 81 mg CHEW TAB* 81 mg PO QAM 01/15/13 05/25/19 History Allopurinol TAB* [Zyloprim 100 MG 100 mg PO BID 06/29/18 05/25/19 History TAB*] Fludrocortisone Acetate TAB* 1 tab PO QAM 06/29/18 05/25/19 History [Florinef TAB*] Folic Acid TAB* [Folvite TAB*] 1 mg PO QAM 06/29/18 05/25/19 History Dexter-3/Dha/Epa/Fish Oil [Fish Oil 2 cap PO QAM 06/29/18 05/25/19 History 500 mg Softgel] Vitamin C TAB* 1 tab PO QAM 06/29/18 05/25/19 History Vitamin D TAB* 1 tab PO QAM 06/29/18 05/25/19 History Fluticasone NASAL SPRAY 50MCG* 2 spr BOTH NARES QAM 05/14/19 05/25/19 History [Flonase NASAL SPRAY 50MCG*] Metoprolol Succinate XL TAB* 25 mg PO DAILY 05/25/19 05/25/19 History [Toprol XL TAB*] Acetaminophen TAB* [Tylenol TAB*] 975 mg PO Q8HR tab 05/26/19 Rx Apixaban* [Eliquis*] 2.5 mg PO BID #60 tab 05/26/19 Rx Docusate CAP* [Colace Cap*] 100 mg PO BID PRN #60 cap 05/26/19 Rx Ferrous Sulfate TAB* 325 mg PO BID #30 tab 05/26/19 Rx oxyCODONE/Acetamin 5/325 MG* 2 tab PO Q4H PRN #50 tab MDD 8 05/26/19 Rx [Percocet 5/325 TAB*] Discharge Instructions following Orthopedic Surgery: Activity: * Weight Bearing as tolerated * Continue physical therapy and occupational therapy exercises as shown * Outpatient physical therapy Wound care: * OK to shower on post-op day 3, no bathing, swimming, or submerging wound. * Use gentle soap, pat dry. Cover with gauze, OLEGARIO wrap or tape. Call Orthopedic office for: * Increased drainage * Redness * Increased pain * Fever Go to ER with shortness of breath or chest pain. Diet: * Regular diet * Increase fluids and fiber to prevent constipation. * Continue to use stool softeners, call office if no bowel motion within 48 hours. Medications See Home Medication List in your packet for medications that you should take after discharge. DVT Prophylaxis: Eliquis Dosin.5 mg, 1 tab every 12 hours x 30 days. Increases bleeding tendency Pain Control: Percocet Dosin/325 mg 1 tab for moderate and 2 tabs for severe pain by mouth every 4 hours as needed. Max of 8 tabs per day Please note that Percocet contains Tylenol (acetaminophen). Maximum daily dose of Tylenol is 4000 mg from all sources. You used very few percocet while in the hospital, it is likely you will be able to control your pain with tylenol primarily and percocet around times of physical therapy as needed, or for breakthrough pain. Antibiotics are required prior to any dental work. FOLLOW UP: Follow up with [Mauricio ] Within 10-14 days, call for appointment Please call our office with any questions or concerns ([phone]) [place] [facility] [place]
[2019-05-26 11:41] VITALS: BP 120/56
== END 2019-05-26 14:09 | disposition home or self-care (01) | DRG 470 ==
LOC: AA 07:17 → INTOOBSV 07:17 → OBSVTOIN 07:17 → SSU 11:43
PROVIDERS: ADMIT Orthopaedic Surgery Adult Reconstructive Orthopaedic Surgery; ATTEND Orthopaedic Surgery Adult Reconstructive Orthopaedic Surgery
PROC: 0SRC0J9 Replacement of Right Knee Joint with Synthetic Substitute, Cemented, Open Approach (ICD-10-PCS; principal; 2019-05-25 11:00)
DX: M17.11 Unilateral primary osteoarthritis, right knee (principal); I44.2 Atrioventricular block, complete; D62 Acute posthemorrhagic anemia; I48.92 Unspecified atrial flutter; I12.9 Hypertensive chronic kidney disease with stage 1 through stage 4 chronic kidney disease, or unspecified chronic kidney disease; N18.3 Chronic kidney disease, stage 3 (moderate); I95.9 Hypotension, unspecified; I77.810 Thoracic aortic ectasia; M10.9 Gout, unspecified; I25.10 Atherosclerotic heart disease of native coronary artery without angina pectoris; M25.761 Osteophyte, right knee; I34.0 Nonrheumatic mitral (valve) insufficiency; E78.5 Hyperlipidemia, unspecified; Z95.5 Presence of coronary angioplasty implant and graft; Z95.0 Presence of cardiac pacemaker; Z86.718 Personal history of other venous thrombosis and embolism; Z86.711 Personal history of pulmonary embolism; Z79.82 Long term (current) use of aspirin; Z79.899 Other long term (current) drug therapy; Z88.8 Allergy status to other drugs, medicaments and biological substances; Z82.49 Family history of ischemic heart disease and other diseases of the circulatory system; Z83.3 Family history of diabetes mellitus; Z82.3 Family history of stroke
CPT/HCPCS: 36415; 80048; 85014; 85018; 85049; 87070; 87073; 87205; 88305; 88311; A9270-GY; C1776; J0690; J1100; J1240; J1885; J2250; J2405; J2704; J2795